=== PATIENT | female | born 1945 | race Two or more races ===

== ENCOUNTER → 2016-03-26 | Outpatient (CLI) | payer OTHER ==
[~2016-03-26] MED LIST: BACL10TA PO; CETITAB PO; DILT180C68 PO; FLUT0.0535 NAS; FURO20TA3 PO; GABA-494 PO; IPRASOL41 NEB; LEVO25TA6 PO; LIDO5DIS21 TOP; LOSA25TA9 PO; METF-312 PO; MONT10TA34 PO; PANT1INJ3 PO; PRAV20TA3 PO; SUCR1TAB36 PO
[2016-03-26 12:25] LABS: Basophils # (auto) 0.1 uL; Basophils % (auto) 1.1 % (0.0-2.0); Eosinophils # (auto) 0.3 uL; Eosinophils % (auto) 4.6 % (0.0-7.0); Hematocrit 41.7 % (36.0-46.0); Hemoglobin 12.9 g/dL (12.2-16.2); Lymphocytes # (auto) 3.4 uL; Lymphocytes % (auto) 47.1 % (10.0-50.0); Mean Corpuscular Hemoglobin 29.1 pg (28.0-32.0); Mean Corpuscular Volume 93.8 fL (80.0-100.0); Mean Platelet Volume 10.5 fL (7.4-10.4); Monocytes # (auto) 0.4 uL; Monocytes % (auto) 5.6 % (0.0-12.0); Neutrophils % (auto) 41.6 % (37.0-80.0); Platelet Count (auto) 249 10^3/uL (140-450); Red Cell Distribution Width 13.4 % (11.6-16.0); White Blood Cell 7.2 10^3/uL (4.4-10.8)
[2016-03-26 12:29] LABS: Urine Bilirubin Negative (Negative); Urine Blood Negative /uL (Negative); Urine Color Yellow (Yellow); Urine Glucose Normal (Normal); Urine Hyaline Cast MOD /lpf (0 - 2); Urine Ketone Negative (Negative); Urine Mucus FEW (None Seen); Urine Nitrite Negative (Negative); Urine RBC 5 /hpf (0 - 4); Urine Squamous Epithelial Cell MOD /hpf (<5); Urine Urobilinogen Normal (Negative); Urine pH 5.5 (5.0-8.0)
[2016-03-26 12:58] LABS: Albumin 3.9 g/dL (3.4-5.0); BUN/Creatinine Ratio 18.3; Bilirubin, Total 0.4 mg/dL (0.2-1.0); Potassium 3.9 mmol/L (3.5-5.1); Total Protein 7.9 g/dL (6.4-8.2)
== END | disposition home or self-care (01) ==
LOC: LAB 11:39
PROVIDERS: ATTEND Family Medicine
DX: E78.5 Hyperlipidemia, unspecified (principal)
CPT/HCPCS: 36415; 80053; 80061; 81001; 82043; 82306; 83036; 84443; 85025

== ENCOUNTER → 2016-06-01 | Outpatient (CLI) | payer OTHER ==
[2016-06-01 12:31] LABS: Albumin 3.7 g/dL (3.4-5.0); BUN/Creatinine Ratio 12.4; Bilirubin, Total 0.4 mg/dL (0.2-1.0); Potassium 3.9 mmol/L (3.5-5.1); Total Protein 7.8 g/dL (6.4-8.2)
== END | disposition home or self-care (01) ==
LOC: LAB 11:50
PROVIDERS: ATTEND Internal Medicine
DX: E78.5 Hyperlipidemia, unspecified (principal); I10 Essential (primary) hypertension; E11.9 Type 2 diabetes mellitus without complications
CPT/HCPCS: 36415; 80053; 80061; 82043; 82306; 83036; 84443

== ENCOUNTER → 2016-07-17 | Outpatient (CLI) | payer OTHER | END | disposition home or self-care (01) | LOC: LAB 16:09 | PROVIDERS: ATTEND Internal Medicine | DX: R68.81 Early satiety (principal) | CPT/HCPCS: 86677 ==

== ENCOUNTER 2016-09-20 23:09 | Emergency (ER) | payer OTHER ==
[~2016-09-20] VITALS: Ht 167.6 cm; Wt 108.9 kg
[~2016-09-20 23:09] MED LIST changes: -METF-312 PO; +METF-370 PO
[2016-09-20 23:30] VITALS: BP 153/65
[2016-09-20 23:49] LABS: Basophils # (auto) 0.1 uL; Basophils % (auto) 0.9 % (0.0-2.0); Eosinophils # (auto) 0.3 uL; Eosinophils % (auto) 4.4 % (0.0-7.0); Hematocrit 37.9 % (36.0-46.0); Hemoglobin 12.6 g/dL (12.2-16.2); Lymphocytes # (auto) 3.4 uL; Lymphocytes % (auto) 46.3 % (10.0-50.0); Mean Corpuscular Hemoglobin 30.1 pg (28.0-32.0); Mean Corpuscular Hgb Conc. 33.2 g/dL (32.0-36.0); Mean Corpuscular Volume 90.9 fL (80.0-100.0); Mean Platelet Volume 9.4 fL (7.4-10.4); Monocytes # (auto) 0.6 uL; Monocytes % (auto) 7.6 % (0.0-12.0); Neutrophils # (auto) 3.1 uL; Neutrophils % (auto) 40.8 % (37.0-80.0); Platelet Count (auto) 210 10^3/uL (140-450); Red Cell Distribution Width 12.8 % (11.6-16.0); SUSPECT SEE PRINTOUT; White Blood Cell 7.5 10^3/uL (4.4-10.8)
[2016-09-21 00:05] LABS: INR 0.92 (0.9-1.15); Partial Thromboplastin Time 23.6 sec (22.64-33.71)
[2016-09-21 00:06] LABS: Urine Bilirubin Negative (Negative); Urine Blood Negative /uL (Negative); Urine Color Yellow (Yellow); Urine Glucose Normal (Normal); Urine Ketone Negative (Negative); Urine Nitrite Negative (Negative); Urine RBC 1 /hpf (0 - 4); Urine Squamous Epithelial Cell FEW /hpf (<5); Urine Urobilinogen Normal (Negative); Urine pH 5.5 (5.0-8.0)
[2016-09-21 00:16] LABS: Albumin 3.6 g/dL (3.4-5.0); BUN/Creatinine Ratio 12.8; Calcium 8.7 mg/dL (8.5-10.1)
[2016-09-21 00:19] LABS: Bilirubin, Total 0.3 mg/dL (0.2-1.0); Total Protein 7.3 g/dL (6.4-8.2)
== END 2016-09-21 01:45 | disposition left against medical advice (07) ==
LOC: ER 23:09
DX: M79.605 Pain in left leg (principal); M79.604 Pain in right leg; Z53.21 Procedure and treatment not carried out due to patient leaving prior to being seen by health care provider
CPT/HCPCS: 36415; 80053; 81001; 85025; 85610; 85730

== ENCOUNTER 2016-09-21 12:38 | Emergency (ER) | payer OTHER ==
[~2016-09-21] VITALS: Ht 167.6 cm; Wt 108.9 kg
[2016-09-21 14:53] VITALS: BP 141/99
== END 2016-09-21 15:00 | disposition home or self-care (01) ==
LOC: ER 12:40
DX: S80.10XA Contusion of unspecified lower leg, initial encounter (principal); N39.0 Urinary tract infection, site not specified; J45.909 Unspecified asthma, uncomplicated; E11.9 Type 2 diabetes mellitus without complications; I10 Essential (primary) hypertension; E07.89 Other specified disorders of thyroid; Z90.710 Acquired absence of both cervix and uterus; Z90.49 Acquired absence of other specified parts of digestive tract; Z90.89 Acquired absence of other organs; Z79.899 Other long term (current) drug therapy; Z88.6 Allergy status to analgesic agent; Z88.5 Allergy status to narcotic agent; Z88.8 Allergy status to other drugs, medicaments and biological substances; Z87.891 Personal history of nicotine dependence; X58.XXXA Exposure to other specified factors, initial encounter; Y93.89 Activity, other specified; Y99.8 Other external cause status; Y92.89 Other specified places as the place of occurrence of the external cause
CPT/HCPCS: 93970

== ENCOUNTER → 2016-10-25 | Outpatient (CLI) | payer OTHER ==
[~2016-10-25] VITALS: Ht 167.6 cm; Wt 105.7 kg
[~2016-10-25] MED LIST changes: +ATOR40TA52 PO; +CETI1TAB36 PO; +ENA10T PO; +ESCI20TA51 PO; +FLUT100I IN; +FURO40TA4 PO; +POTA20TA53 PO
[2016-10-25 11:43] LABS: Basophils # (auto) 0 uL; Basophils % (auto) 0.7 % (0.0-2.0); CONDITION Y; Eosinophils # (auto) 0.2 uL; Eosinophils % (auto) 3.6 % (0.0-7.0); Hematocrit 39.8 % (36.0-46.0); Hemoglobin 13.1 g/dL (12.2-16.2); Lymphocytes % (auto) 37.4 % (10.0-50.0); Mean Corpuscular Hemoglobin 30.4 pg (28.0-32.0); Mean Corpuscular Volume 91.9 fL (80.0-100.0); Mean Platelet Volume 9.7 fL (7.4-10.4); Monocytes # (auto) 0.3 uL; Monocytes % (auto) 5.6 % (0.0-12.0); Neutrophils # (auto) 2.8 uL; Neutrophils % (auto) 52.7 % (37.0-80.0); Platelet Count (auto) 251 10^3/uL (140-450); Red Cell Distribution Width 14.9 % (11.6-16.0); White Blood Cell 5.4 10^3/uL (4.4-10.8)
[2016-10-25 11:57] LABS: INR 1.02 (0.9-1.15); Partial Thromboplastin Time 24.7 sec (22.64-33.71); Prothrombin Time 11.1 sec (9.37-12.3)
== END | disposition home or self-care (01) ==
LOC: LAB 08:00 → EDSTATUS 10-26 09:00
PROVIDERS: ATTEND Internal Medicine Gastroenterology
DX: R63.0 Anorexia (principal); I10 Essential (primary) hypertension; E11.9 Type 2 diabetes mellitus without complications; Z79.01 Long term (current) use of anticoagulants
CPT/HCPCS: 36415; 85025; 85610; 85730

== ENCOUNTER 2017-05-25 17:11 | Emergency (ER) | payer SELFPAY ==
[~2017-05-25] VITALS: Ht 167.6 cm; Wt 109.8 kg
[~2017-05-25 17:11] MED LIST changes: -CETITAB PO; -FLUT0.0535 NAS; -FURO20TA3 PO; -GABA-494 PO; -IPRASOL41 NEB; -LIDO5DIS21 TOP; -LOSA25TA9 PO; -METF-370 PO; -MONT10TA34 PO; -PANT1INJ3 PO; -PRAV20TA3 PO; -SUCR1TAB36 PO
[2017-05-25 20:28] LABS: Albumin 3.8 g/dL (3.4-5.0); Bilirubin, Total 0.4 mg/dL (0.2-1.0); Calcium 8.7 mg/dL (8.5-10.1); Potassium 4.1 mmol/L (3.5-5.1); Total Protein 7.7 g/dL (6.4-8.2)
[2017-05-25 21:00] LABS: Basophils # (auto) 0.1 uL; Basophils % (auto) 1.2 % (0.0-2.0); Eosinophils # (auto) 0.2 uL; Eosinophils % (auto) 2.4 % (0.0-7.0); Hematocrit 40.3 % (36.0-46.0); Hemoglobin 13.3 g/dL (12.2-16.2); Lymphocytes # (auto) 2.8 uL; Lymphocytes % (auto) 30.6 % (10.0-50.0); Mean Corpuscular Hemoglobin 30.9 pg (28.0-32.0); Mean Corpuscular Volume 93.7 fL (80.0-100.0); Monocytes # (auto) 0.6 uL; Monocytes % (auto) 6.1 % (0.0-12.0); Neutrophils # (auto) 5.5 uL; Neutrophils % (auto) 59.7 % (37.0-80.0); Nucleated Red Blood Cells % 0.1 %; Platelet Count (auto) 214 10^3/uL (140-450); Red Cell Distribution Width 13.7 % (11.8-14.3); White Blood Cell 9.3 10^3/uL (4.4-10.8)
[2017-05-25 23:10] VITALS: BP 123/54
== END 2017-05-26 00:25 | disposition left against medical advice (07) ==
LOC: EDUNIT# 17:11 → EDBD 17:11 → ER 17:11
DX: S70.02XA Contusion of left hip, initial encounter (principal); S30.1XXA Contusion of abdominal wall, initial encounter; T88.8XXA Other specified complications of surgical and medical care, not elsewhere classified, initial encounter; M19.90 Unspecified osteoarthritis, unspecified site; J45.909 Unspecified asthma, uncomplicated; E11.9 Type 2 diabetes mellitus without complications; I10 Essential (primary) hypertension; E07.9 Disorder of thyroid, unspecified; Z90.49 Acquired absence of other specified parts of digestive tract; Z90.710 Acquired absence of both cervix and uterus; Z91.040 Latex allergy status; Z88.8 Allergy status to other drugs, medicaments and biological substances; Z79.899 Other long term (current) drug therapy; E66.01 Morbid (severe) obesity due to excess calories; Z68.39 Body mass index [BMI] 39.0-39.9, adult; X58.XXXA Exposure to other specified factors, initial encounter; Y93.89 Activity, other specified; Y92.89 Other specified places as the place of occurrence of the external cause; Y99.8 Other external cause status
CPT/HCPCS: 36415; 73502; 74176; 80053; 85025

== ENCOUNTER 2017-08-21 06:36 | Inpatient (IN) | payer OTHER ==
[~2017-08-21] VITALS: Ht 167.6 cm; Wt 112.4 kg
[2017-08-21] MEDS ORDERED: SODIUM CHLORIDE 0.9% 1,000 ML IV ONE (06:58)
[2017-08-21 07:23] LABS: Basophils # (auto) 0.1 uL; Basophils % (auto) 0.5 % (0.0-2.0); Eosinophils # (auto) 0 uL; Eosinophils % (auto) 0.1 % (0.0-7.0); Hematocrit 40.3 % (36.0-46.0); Hemoglobin 13.4 g/dL (12.2-16.2); Lymphocytes # (auto) 1.2 uL; Lymphocytes % (auto) 9.5 % (10.0-50.0); Mean Corpuscular Hemoglobin 30.6 pg (28.0-32.0); Mean Corpuscular Hgb Conc. 33.4 g/dL (32.0-36.0); Mean Corpuscular Volume 91.7 fL (80.0-100.0); Monocytes # (auto) 0.6 uL; Monocytes % (auto) 4.8 % (0.0-12.0); Neutrophils # (auto) 10.6 uL; Neutrophils % (auto) 85.1 % (37.0-80.0); Platelet Count (auto) 192 10^3/uL (140-450); Red Cell Distribution Width 13.9 % (11.8-14.3); White Blood Cell 12.4 10^3/uL (4.4-10.8)
[2017-08-21] MEDS ORDERED: PROMETHAZINE HCL 25 MG/ML 1ML IV PRN ×2 (07:30→12:30)
[2017-08-21] MEDS ORDERED: KETOROLAC TROMETH 30 MG/ML 1ML VIAL IV ONE (07:30)
[2017-08-21 07:43] LABS: Albumin 3.3 g/dL (3.4-5.0); Amylase 27 U/L (25-115); Anion Gap 13 (5-15); BUN/Creatinine Ratio 13.8; Blood Urea Nitrogen 15 mg/dL (7-18); Calcium 8.8 mg/dL (8.5-10.1); Carbon Dioxide 26 mmol/L (21-32); Chloride 101 mmol/L (98-107); GFR African American 64 mL/min; GFR Non-African American 53 mL/min; Glucose 163 mg/dL (74-106); Lipase 116 U/L (73-393); Sodium 140 mmol/L (136-145)
[2017-08-21 07:45] LABS: Lactic Acid w/Reflex 2.1 mmol/L (0.4-2.0)
[2017-08-21 07:48] LABS: Alanine Aminotransferase 19 U/L (13-56); Alkaline Phosphatase 71 U/L (45-117); Aspartate Aminotransferase 11 U/L (15-37); Bilirubin, Total 0.6 mg/dL (0.2-1.0); Total Protein 7.8 g/dL (6.4-8.2)
[2017-08-21] MEDS ORDERED: VANCOMYCIN 1GM/250ML 250 ML IV ONE (09:00)
[2017-08-21 09:36] LABS: Urine Bacteria FEW /hpf (None Seen); Urine Blood Negative /uL (Negative); Urine Mucus FEW (None Seen); Urine Specific Gravity 1.021 (1.001-1.035); Urine WBC 3 /hpf (0 - 5)
[2017-08-21] MEDS ORDERED: ACETAMINOPHEN 325 MG TAB PO ONE (10:15)
[2017-08-21] MEDS ORDERED: SODIUM CHLORIDE 0.9% 1,000 ML IV SCH (12:19)
[2017-08-21] MEDS ORDERED: BACLOFEN 10 MG TAB PO PRN (12:30)
[2017-08-21] MEDS ORDERED: NITROGLYCERIN 0.4 MG SL TAB SL PRN (12:30)
[2017-08-21] MEDS ORDERED: PIPERACILLIN-TAZOB 3.375GM 100 ML IV ONE (12:30)
[2017-08-21] MEDS ORDERED: traMADol HCL 50 MG TAB PO PRN (12:30)
[2017-08-21] MEDS ORDERED: DEXTROSE (50%) 50ML SYRG IV PRN (12:30)
[2017-08-21] MEDS ORDERED: MORPHINE SULF INJ 2 MG/ML SYRINGE 1ML IV PRN ×2 (12:30)
[2017-08-21] MEDS ORDERED: LORazepam 0.5 MG TAB PO PRN (12:30)
[2017-08-21] MEDS ORDERED: TEMAZEPAM 15 MG CAP PO PRN (12:30)
[2017-08-21] MEDS ORDERED: VANCOMYCIN PER PHARMACY 0 MG IV SCH (12:30)
[2017-08-21] MEDS: DILTIAZEM HCL 180MG ER CAP PO SCH (13:21)
[2017-08-21] MEDS: FAMOTIDINE (10MG/ML) 2ML VL IV SCH ×2 (13:34→23:58)
[2017-08-21] MEDS: SODIUM CHLORIDE 0.9% 1,000 ML IV SCH (13:51)
[2017-08-21] MEDS ORDERED: MIDAZOLAM HCL 1MG/1ML-2 ML VIAL ONE (13:55)
[2017-08-21] MEDS ORDERED: fentaNYL CITRATE 100 MCG/2 ML VL ONE (13:55)
[2017-08-21] MEDS ORDERED: VANCOMYCIN 1GM/250ML 250 ML IV SCH ×2 (14:00→16:00)
[2017-08-21] MEDS ORDERED: LIDOCAINE 2% (LOCAL ANESTH.) PF 5ml SDV ONE (14:07)
[2017-08-21] MEDS ORDERED: FLUMAZENIL 0.1 MG/ML INJ 10ML MDV IV ONE (14:14)
[2017-08-21 15:20] VITALS: BP 114/65
[2017-08-21] MEDS ORDERED: ESCI20TA PO (15:50)
[2017-08-21] MEDS ORDERED: NAPR375T27 PO (15:50)
[2017-08-21] MEDS ORDERED: ATO40T PO (15:50)
[2017-08-21] MEDS ORDERED: POM INH (15:50)
[2017-08-21] MEDS: VANCOMYCIN 1,250 MG in D5W 5% 250 ML IV SCH (16:23)
[2017-08-21 16:29] LABS: Amylase 29 U/L (25-115); Lipase 117 U/L (73-393)
[2017-08-21 17:32] VITALS: BP 140/76
[2017-08-21] MEDS: PIPERACILLIN-TAZOB 3.375GM 100 ML IV SCH ×2 (18:28→23:44)
[2017-08-21] MEDS: ACCU-CHEK COMFORT CURVE STRIP VI SCH ×2 (18:28→23:58)
[2017-08-21] MEDS: ACETAMINOPHEN 500 MG TAB PO PRN (18:39)
[2017-08-21] MEDS: InsuLIN REG 1unit/0.01ml Soln (100units/ml) SC SCH ×2 (18:40→23:58)
[2017-08-21 20:00] VITALS: BP 112/50
[2017-08-21] MEDS: ATORVASTATIN 20 MG TAB PO SCH (21:55)
[2017-08-21 22:00] VITALS: BP 112/50
[2017-08-21] MEDS ORDERED: LORATADINE 10 MG TAB PO ONE (22:15)
[2017-08-22] VITALS (7 sets, daily range): BP systolic 111–162; BP diastolic 39–81
[2017-08-22] MEDS: ACETAMINOPHEN 500 MG TAB PO PRN ×3 (03:06→17:51)
[2017-08-22] MEDS: PIPERACILLIN-TAZOB 3.375GM 100 ML IV SCH ×3 (05:54→17:50)
[2017-08-22 05:59] LABS: Basophils # (auto) 0.1 uL; Basophils % (auto) 0.7 % (0.0-2.0); Eosinophils # (auto) 0 uL; Hematocrit 34.7 % (36.0-46.0); Hemoglobin 11.6 g/dL (12.2-16.2); Lymphocytes # (auto) 1.7 uL; Lymphocytes % (auto) 11.4 % (10.0-50.0); Mean Corpuscular Hemoglobin 30.8 pg (28.0-32.0); Mean Corpuscular Hgb Conc. 33.5 g/dL (32.0-36.0); Monocytes # (auto) 0.9 uL; Neutrophils % (auto) 81.9 % (37.0-80.0); Platelet Count (auto) 159 10^3/uL (140-450); Red Blood Cells 3.76 10^6/uL (4.0-5.20); White Blood Cell 14.6 10^3/uL (4.4-10.8)
[2017-08-22] MEDS: ACCU-CHEK COMFORT CURVE STRIP VI SCH ×3 (06:00→17:50)
[2017-08-22 06:12] LABS: Albumin 2.7 g/dL (3.4-5.0); BUN/Creatinine Ratio 13.3; Calcium 7.5 mg/dL (8.5-10.1); Potassium 3.5 mmol/L (3.5-5.1)
[2017-08-22 06:14] LABS: Bilirubin, Total 1.2 mg/dL (0.2-1.0); Total Protein 6.4 g/dL (6.4-8.2)
[2017-08-22] MEDS: InsuLIN REG 1unit/0.01ml Soln (100units/ml) SC SCH ×3 (06:58→18:00)
[2017-08-22] MEDS: LEVOTHYROXINE SODIUM 25 MCG TAB PO SCH (09:52)
[2017-08-22] MEDS: LORATADINE 10 MG TAB PO SCH (09:52)
[2017-08-22] MEDS: SODIUM CHLORIDE 0.9% 1,000 ML IV SCH ×2 (09:53)
[2017-08-22] MEDS: DILTIAZEM HCL 180MG ER CAP PO SCH ×3 (09:57→17:54)
[2017-08-22] MEDS: LEXAPRO PO SCH (09:57)
[2017-08-22] MEDS ORDERED: ENALAPRIL MALEATE 10 MG TAB PO SCH (10:00)
[2017-08-22] MEDS: FAMOTIDINE (10MG/ML) 2ML VL IV SCH (12:20)
[2017-08-22] MEDS: CYANOCOBALAMIN 500 MCG TAB PO SCH (12:27)
[2017-08-22] MEDS ORDERED: VANCOMYCIN 1,250 MG in D5W 5% 250 ML IV ONE (14:30)
[2017-08-22] MEDS: VANCOMYCIN 1,250 MG in D5W 5% 250 ML IV SCH (16:57)
[2017-08-22] MEDS: ATORVASTATIN 20 MG TAB PO SCH (22:04)
[2017-08-23] MEDS: PIPERACILLIN-TAZOB 3.375GM 100 ML IV SCH ×4 (00:51→17:25)
[2017-08-23] MEDS: InsuLIN REG 1unit/0.01ml Soln (100units/ml) SC SCH ×4 (00:52→17:30)
[2017-08-23] MEDS: ACETAMINOPHEN 500 MG TAB PO PRN ×4 (00:58→21:52)
[2017-08-23] MEDS: FAMOTIDINE (10MG/ML) 2ML VL IV SCH ×2 (00:58→12:54)
[2017-08-23 05:00] VITALS: BP 120/59
[2017-08-23 06:00] LABS: Basophils # (auto) 0.2 uL; Basophils % (auto) 1.3 % (0.0-2.0); Eosinophils # (auto) 0 uL; Eosinophils % (auto) 0.1 % (0.0-7.0); Hematocrit 34.3 % (36.0-46.0); Hemoglobin 11.5 g/dL (12.2-16.2); Lymphocytes # (auto) 1.2 uL; Lymphocytes % (auto) 8.7 % (10.0-50.0); Mean Corpuscular Hgb Conc. 33.5 g/dL (32.0-36.0); Mean Corpuscular Volume 92.4 fL (80.0-100.0); Monocytes # (auto) 0.9 uL; Monocytes % (auto) 6.9 % (0.0-12.0); Neutrophils # (auto) 11.1 uL; Platelet Count (auto) 152 10^3/uL (140-450); Red Blood Cells 3.71 10^6/uL (4.0-5.20); Red Cell Distribution Width 13.6 % (11.8-14.3); White Blood Cell 13.3 10^3/uL (4.4-10.8)
[2017-08-23 06:07] LABS: INR 1.05 (0.9-1.15); Partial Thromboplastin Time 27.3 sec (23.78-33.04); Prothrombin Time 11.2 sec (9.27-12.13)
[2017-08-23] MEDS: ACCU-CHEK COMFORT CURVE STRIP VI SCH ×4 (06:22→17:30)
[2017-08-23 06:25] LABS: Calcium 8.1 mg/dL (8.5-10.1); Magnesium 2.4 mg/dL (1.6-2.6); Potassium 3.5 mmol/L (3.5-5.1)
[2017-08-23 08:00] VITALS: BP 134/97
[2017-08-23 09:00] VITALS: BP 134/97
[2017-08-23] MEDS: LEXAPRO PO SCH (10:00)
[2017-08-23] MEDS: DILTIAZEM HCL 180MG ER CAP PO SCH (10:00)
[2017-08-23] MEDS: CYANOCOBALAMIN 500 MCG TAB PO SCH (10:00)
[2017-08-23] MEDS: LORATADINE 10 MG TAB PO SCH (10:14)
[2017-08-23] MEDS: LEVOTHYROXINE SODIUM 25 MCG TAB PO SCH (10:15)
[2017-08-23 13:00] VITALS: BP 143/66
[2017-08-23] MEDS: VANCOMYCIN 1,250 MG in D5W 5% 250 ML IV SCH (16:12)
[2017-08-23 17:00] VITALS: BP 117/78
[2017-08-23] MEDS ORDERED: CIPROFLOXACIN HCL 500 MG TAB PO ONE (17:00)
[2017-08-23] MEDS ORDERED: ACE500T PO (17:02)
[2017-08-23] MEDS ORDERED: CIPR-217 PO (17:02)
[2017-08-23] MEDS: ATORVASTATIN 20 MG TAB PO SCH (21:49)
[2017-08-23 22:00] VITALS: BP 155/76
[2017-08-24] MEDS: PIPERACILLIN-TAZOB 3.375GM 100 ML IV SCH ×3 (00:14→11:45)
[2017-08-24] MEDS: ACCU-CHEK COMFORT CURVE STRIP VI SCH ×3 (00:14→11:45)
[2017-08-24] MEDS: FAMOTIDINE (10MG/ML) 2ML VL IV SCH ×2 (00:18→11:44)
[2017-08-24 05:42] LABS: Basophils # (auto) 0.1 uL; Basophils % (auto) 0.8 % (0.0-2.0); Eosinophils # (auto) 0.1 uL; Eosinophils % (auto) 0.6 % (0.0-7.0); Hematocrit 33.9 % (36.0-46.0); Hemoglobin 11.4 g/dL (12.2-16.2); Lymphocytes # (auto) 1.3 uL; Lymphocytes % (auto) 11.6 % (10.0-50.0); Mean Corpuscular Hgb Conc. 33.7 g/dL (32.0-36.0); Mean Corpuscular Volume 92.1 fL (80.0-100.0); Monocytes # (auto) 0.9 uL; Monocytes % (auto) 8.4 % (0.0-12.0); Neutrophils # (auto) 8.6 uL; Neutrophils % (auto) 78.6 % (37.0-80.0); Platelet Count (auto) 188 10^3/uL (140-450); Red Blood Cells 3.69 10^6/uL (4.0-5.20); Red Cell Distribution Width 13.7 % (11.8-14.3)
[2017-08-24 05:56] VITALS: BP 163/76
[2017-08-24] MEDS: ACETAMINOPHEN 500 MG TAB PO PRN (05:56)
[2017-08-24] MEDS: InsuLIN REG 1unit/0.01ml Soln (100units/ml) SC SCH ×3 (05:56→12:00)
[2017-08-24 05:57] LABS: Calcium 7.7 mg/dL (8.5-10.1); Potassium 3.2 mmol/L (3.5-5.1)
[2017-08-24 09:00] VITALS: BP 141/69
[2017-08-24] MEDS: DILTIAZEM HCL 180MG ER CAP PO SCH (09:55)
[2017-08-24] MEDS: LEVOTHYROXINE SODIUM 25 MCG TAB PO SCH (09:56)
[2017-08-24] MEDS: LORATADINE 10 MG TAB PO SCH (09:56)
[2017-08-24] MEDS: LEXAPRO PO SCH (10:00)
[2017-08-24] MEDS: CYANOCOBALAMIN 500 MCG TAB PO SCH (10:00)
[2017-08-24 13:00] VITALS: BP 166/69
[2017-08-24 14:48] VITALS: BP 166/69
== END 2017-08-24 16:30 | disposition home health service (06) | DRG 919 ==
LOC: EDBD 06:36 → ER 06:36 → TELE 06:37 → TELE-WESTW 15:58
PROVIDERS: ADMIT Internal Medicine; ATTEND Internal Medicine
PROC: 0W9F30Z Drainage of Abdominal Wall with Drainage Device, Percutaneous Approach (ICD-10-PCS; principal; 2017-08-21)
DX: L76.34 Postprocedural seroma of skin and subcutaneous tissue following other procedure (principal); A41.9 Sepsis, unspecified organism; N39.0 Urinary tract infection, site not specified; I13.0 Hypertensive heart and chronic kidney disease with heart failure and stage 1 through stage 4 chronic kidney disease, or unspecified chronic kidney disease; R18.8 Other ascites; E44.0 Moderate protein-calorie malnutrition; Z68.41 Body mass index [BMI] 40.0-44.9, adult; E03.9 Hypothyroidism, unspecified; E11.22 Type 2 diabetes mellitus with diabetic chronic kidney disease; E11.65 Type 2 diabetes mellitus with hyperglycemia; E66.01 Morbid (severe) obesity due to excess calories; E78.5 Hyperlipidemia, unspecified; F32.9 Major depressive disorder, single episode, unspecified; F41.9 Anxiety disorder, unspecified; G47.30 Sleep apnea, unspecified; I50.9 Heart failure, unspecified; J44.9 Chronic obstructive pulmonary disease, unspecified; M19.90 Unspecified osteoarthritis, unspecified site; R91.1 Solitary pulmonary nodule; R01.1 Cardiac murmur, unspecified; I08.0 Rheumatic disorders of both mitral and aortic valves; Y83.9 Surgical procedure, unspecified as the cause of abnormal reaction of the patient, or of later complication, without mention of misadventure at the time of the procedure; Y82.8 Other medical devices associated with adverse incidents; B95.2 Enterococcus as the cause of diseases classified elsewhere; N18.3 Chronic kidney disease, stage 3 (moderate); Z82.49 Family history of ischemic heart disease and other diseases of the circulatory system; Z87.891 Personal history of nicotine dependence; Z90.710 Acquired absence of both cervix and uterus; Z90.49 Acquired absence of other specified parts of digestive tract; Z86.718 Personal history of other venous thrombosis and embolism; Z88.8 Allergy status to other drugs, medicaments and biological substances; Z91.040 Latex allergy status; Y92.89 Other specified places as the place of occurrence of the external cause
CPT/HCPCS: 10022; 36415; 71046; 74176; 76700; 77012; 80048; 80053; 81001; 82150; 82962; 83036; 83605; 83690; 83735; 84443; 84484; 85025; 85610; 85652; 85730; 87040; 87077; 87086; 87186; 87205; 93005; 93306; 96365; 96375; C1729; J1815; J1885; J2250; J2543; J3490; J7060

== ENCOUNTER 2021-05-05 12:53 | Emergency (ER) | payer OTHER ==
[~2021-05-05] VITALS: Ht 167.6 cm; Wt 108.9 kg
[~2021-05-05 12:53] MED LIST changes: +ACET500T43 PO; +ATO40T PO; -ATOR40TA52 PO; -BACL10TA PO; +CLIN300C8 PO; +DIPH25CA66 PO; -ENA10T PO; +ESCI20TA PO; -ESCI20TA51 PO; +LEVO500T31 PO; +NAPR375T27 PO; +POM INH; +POTA-220 PO; -POTA20TA53 PO
[2021-05-05] MEDS ORDERED: traMADol HCL 50 MG TAB PO ONE ×2 (13:30→16:15)
[2021-05-05] MEDS ORDERED: ONDANSETRON ODT 4 MG TAB PO ONE (14:30)
[2021-05-05] MEDS ORDERED: IOHEXOL 350 MG/ML 100ML IJ ONE (16:21)
[2021-05-05] MEDS ORDERED: KETOROLAC TROMETH 30 MG/ML 1ML VIAL IV ONE (16:45)
[2021-05-05 17:06] LABS: Basophils # (auto) 0.1 10 ^3/uL (0-0.2); Basophils % (auto) 0.5 % (0.0-2.0); Eosinophils # (auto) 0 10 ^3/uL (0-0.8); Eosinophils % (auto) 0.2 % (0.0-7.0); Hematocrit 41.5 % (36.0-46.0); Hemoglobin 13.7 g/dL (12.2-16.2); Lymphocytes # (auto) 1.5 10 ^3/uL (0.4-5.4); Lymphocytes % (auto) 12.6 % (10.0-50.0); Mean Corpuscular Hemoglobin 30.7 pg (28.0-32.0); Monocytes # (auto) 0.6 10 ^3/uL (0-1.3); Monocytes % (auto) 4.7 % (0.0-12.0); Neutrophils # (auto) 9.9 10 ^3/uL (1.6-8.6); Nucleated Red Blood Cells % 0.1 %; Red Blood Cells 4.46 10^6/uL (4.0-5.20); Red Cell Distribution Width 13.9 % (11.8-14.3); White Blood Cell 12.1 10^3/uL (4.4-10.8)
[2021-05-05 17:12] LABS: INR 1.03 (0.9-1.15); Partial Thromboplastin Time 24.8 sec (23.6-33.0)
[2021-05-05 17:22] LABS: Albumin 3.6 g/dL (3.4-5.0); Calcium 8.7 mg/dL (8.5-10.1); Potassium 4.2 mmol/L (3.5-5.1)
[2021-05-05 17:26] LABS: BUN/Creatinine Ratio 19.6; Bilirubin, Total 0.2 mg/dL (0.2-1.0); Total Protein 7.9 g/dL (6.4-8.2)
[2021-05-05 17:31] VITALS: BP 117/93
== END 2021-05-05 17:49 | disposition short-term general hospital (02) ==
LOC: EDBD 12:53 → ER 12:53
DX: S82.832A Other fracture of upper and lower end of left fibula, initial encounter for closed fracture (principal); S22.41XA Multiple fractures of ribs, right side, initial encounter for closed fracture; J93.9 Pneumothorax, unspecified; I10 Essential (primary) hypertension; E11.9 Type 2 diabetes mellitus without complications; J44.9 Chronic obstructive pulmonary disease, unspecified; I48.91 Unspecified atrial fibrillation; E03.9 Hypothyroidism, unspecified; Z87.891 Personal history of nicotine dependence; Z90.49 Acquired absence of other specified parts of digestive tract; Z90.710 Acquired absence of both cervix and uterus; Z79.899 Other long term (current) drug therapy; Z79.2 Long term (current) use of antibiotics; Z91.040 Latex allergy status; Z88.8 Allergy status to other drugs, medicaments and biological substances; Z20.822 Contact with and (suspected) exposure to COVID-19; V43.62XA Car passenger injured in collision with other type car in traffic accident, initial encounter; Y93.89 Activity, other specified; Y92.410 Unspecified street and highway as the place of occurrence of the external cause; Y99.8 Other external cause status
CPT/HCPCS: 36415; 71101; 73070; 73610; 80053; 85025; 85610; 85730; 87426; 93005; 96374; 99285; J1885; Q0162

== ENCOUNTER 2023-03-04 17:53 | Inpatient (IN) | payer OTHER, MEDICAID ==
[~2023-03-04] VITALS: Ht 167.6 cm; Wt 108.1 kg
[~2023-03-04 17:53] MED LIST changes: -ACET500T43 PO; +AMIO200T33 PO; +APIX5TAB PO; -CLIN300C8 PO; -FURO40TA4 PO; -LEVO500T31 PO; -NAPR375T27 PO; -POM INH
[2023-03-04] MEDS ORDERED: LABETALOL HCL 5 MG/ML 4ML SYRINGE IV ONE (18:15)
[2023-03-04] MEDS ORDERED: ASPirin 81 mg TAB PO ONE (18:15)
[2023-03-04 18:21] VITALS: PULSE 126; RESP 16; O2SAT 97
[2023-03-04 18:26] LABS: Basophils # (auto) 0 10 ^3/uL (0-0.2); Basophils % (auto) 0.1 % (0.0-2.0); Eosinophils # (auto) 0.3 10 ^3/uL (0-0.8); Eosinophils % (auto) 3.8 % (0.0-7.0); Hematocrit 41.2 % (36.0-46.0); Hemoglobin 13.6 g/dL (12.2-16.2); Lymphocytes # (auto) 2.6 10 ^3/uL (0.4-5.4); Lymphocytes % (auto) 35.2 % (10.0-50.0); Mean Corpuscular Hemoglobin 30.9 pg (28.0-32.0); Mean Corpuscular Hgb Conc. 32.9 g/dL (32.0-36.0); Mean Corpuscular Volume 93.9 fL (80.0-100.0); Monocytes # (auto) 0.4 10 ^3/uL (0-1.3); Monocytes % (auto) 5.8 % (0.0-12.0); Neutrophils % (auto) 55.1 % (37.0-80.0); Nucleated Red Blood Cells % 0.1 %; Red Blood Cells 4.39 10^6/uL (4.0-5.20); Red Cell Distribution Width 13.5 % (11.8-14.3); White Blood Cell 7.3 10^3/uL (4.4-10.8)
[2023-03-04 18:42] LABS: Alanine Aminotransferase 13 U/L (7-40); Albumin 4.7 g/dL (3.2-4.8); Alkaline Phosphatase 75 U/L (46-116); Anion Gap 8 (5-15); Aspartate Aminotransferase 12 U/L (13-40); BUN/Creatinine Ratio 14.7 (10.0-20.0); Blood Urea Nitrogen 17 mg/dL (9-23); Calcium 9.6 mg/dL (8.7-10.4); Carbon Dioxide 30 mmol/L (20-30); Chloride 100 mmol/L (98-107); Glucose 111 mg/dL (74-106); Potassium 3.6 mmol/L (3.5-5.1); Sodium 138 mmol/L (136-145)
[2023-03-04 18:43] LABS: Bilirubin, Total 0.5 mg/dL (0.2-1.0); Total Protein 7.7 g/dL (5.7-8.2)
[2023-03-04] MEDS ORDERED: MORPHINE SULFATE INJ 2 MG/ml SYRG IV PRN (19:15)
[2023-03-04] MEDS ORDERED: HYDROcodone-ACET 5/325MG TAB PO PRN (19:15)
[2023-03-04] MEDS ORDERED: ONDANSETRON HCL 4 MG/2 ML VIAL IV PRN (19:15)
[2023-03-04] MEDS ORDERED: NITROGLYCERIN 0.4 MG SL TAB SL PRN (19:15)
[2023-03-04] MEDS ORDERED: DEXTROSE (50%) 50ML SYRG IV PRN (19:15)
[2023-03-04 20:00] VITALS: PULSE 65; RESP 17; O2SAT 94
[2023-03-04] MEDS ORDERED: IPRATROPIUM BROM 0.5 MG/2.5ML INH SOL NEB PRN (20:15)
[2023-03-04 22:00] VITALS: PULSE 69; RESP 19; O2SAT 96
[2023-03-04] MEDS: InsuLIN REG 1unit/0.01ml Soln (100units/ml) SC SCH (22:00)
[2023-03-04] MEDS: ACCU-CHEK COMFORT CURVE STRIP VI SCH (22:10)
[2023-03-04] MEDS: APIXABAN 5 MG TAB PO SCH (22:13)
[2023-03-04] MEDS: ATORVASTATIN 20 MG TAB PO SCH (22:13)
[2023-03-04] MEDS: GABAPENTIN 300 MG CAP PO SCH (22:14)
[2023-03-05] VITALS (10 sets, daily range): BP systolic 111–135; BP diastolic 46–55; PULSE 55–72; RESP 16–18; TEMP 97.9–98.9; O2SAT 90–97
[2023-03-05 05:59] LABS: Anion Gap 8 (5-15); Calcium 9.4 mg/dL (8.7-10.4); Carbon Dioxide 31 mmol/L (20-30); Chloride 100 mmol/L (98-107); Potassium 3.7 mmol/L (3.5-5.1); Sodium 139 mmol/L (136-145)
[2023-03-05 06:04] LABS: Glucose 105 mg/dL (74-106)
[2023-03-05 06:05] LABS: BUN/Creatinine Ratio 16.8 (10.0-20.0); Blood Urea Nitrogen 17 mg/dL (9-23); Magnesium 2.2 mg/dL (1.6-2.6)
[2023-03-05] MEDS: InsuLIN REG 1unit/0.01ml Soln (100units/ml) SC SCH ×4 (07:00→22:00)
[2023-03-05] MEDS: ACCU-CHEK COMFORT CURVE STRIP VI SCH ×4 (07:17→22:00)
[2023-03-05] MEDS: LEVOTHYROXINE SODIUM 50 MCG TAB PO SCH (07:18)
[2023-03-05] MEDS ORDERED: PNEUMOCOCCAL VACC POLYS 25 MCG/0.5 ML VIAL IM ONE (10:45)
[2023-03-05] MEDS: GABAPENTIN 300 MG CAP PO SCH ×2 (11:08→21:02)
[2023-03-05] MEDS: APIXABAN 5 MG TAB PO SCH ×2 (11:08→21:02)
[2023-03-05] MEDS: AMIODARONE HCL 200 MG TAB PO SCH (21:01)
[2023-03-05] MEDS: ACETAMINOPHEN 325 MG TAB PO PRN (21:02)
[2023-03-05] MEDS: ATORVASTATIN 20 MG TAB PO SCH (21:02)
[2023-03-06] VITALS (9 sets, daily range): BP systolic 110–148; BP diastolic 39–68; PULSE 51–73; RESP 14–20; TEMP 97.6–98.3; O2SAT 90–97
[2023-03-06] MEDS: LEVOTHYROXINE SODIUM 50 MCG TAB PO SCH (06:40)
[2023-03-06] MEDS: ACCU-CHEK COMFORT CURVE STRIP VI SCH ×4 (06:40→21:52)
[2023-03-06] MEDS: InsuLIN REG 1unit/0.01ml Soln (100units/ml) SC SCH ×4 (06:43→21:51)
[2023-03-06] MEDS: ACETAMINOPHEN 325 MG TAB PO PRN ×2 (06:43→21:45)
[2023-03-06] MEDS: AMIODARONE HCL 200 MG TAB PO SCH (09:59)
[2023-03-06] MEDS: APIXABAN 5 MG TAB PO SCH (09:59)
[2023-03-06] MEDS: dilTIAZem HCL 180MG ER CAP PO SCH (10:00)
[2023-03-06] MEDS: GABAPENTIN 300 MG CAP PO SCH ×2 (10:01→21:46)
[2023-03-06] MEDS ORDERED: GABA-1250 PO (17:24)
[2023-03-06] MEDS ORDERED: CHLO25TA2 PO (17:24)
[2023-03-06] MEDS: ATORVASTATIN 20 MG TAB PO SCH (21:46)
[2023-03-06] MEDS: ALPRAZolam 0.25 MG TAB PO PRN (21:48)
[2023-03-07] VITALS (9 sets, daily range): BP systolic 117–146; BP diastolic 46–90; PULSE 52–80; RESP 12–20; TEMP 97.7–98.3; O2SAT 91–97
[2023-03-07] MEDS: ACCU-CHEK COMFORT CURVE STRIP VI SCH ×4 (06:31→22:00)
[2023-03-07] MEDS: LEVOTHYROXINE SODIUM 50 MCG TAB PO SCH (06:31)
[2023-03-07] MEDS: InsuLIN REG 1unit/0.01ml Soln (100units/ml) SC SCH ×4 (06:31→22:00)
[2023-03-07] MEDS: dilTIAZem HCL 180MG ER CAP PO SCH (10:00)
[2023-03-07] MEDS: ACETAMINOPHEN 325 MG TAB PO PRN ×2 (10:21→21:20)
[2023-03-07] MEDS: GABAPENTIN 300 MG CAP PO SCH ×2 (10:21→23:49)
[2023-03-07] MEDS: ALPRAZolam 0.25 MG TAB PO PRN (21:18)
[2023-03-07] MEDS: ENOXAPARIN SOD 80 MG/0.8ML SYRINGE SC SCH (22:00)
[2023-03-07] MEDS: ATORVASTATIN 20 MG TAB PO SCH (23:49)
[2023-03-08] VITALS (14 sets, daily range): BP systolic 88–125; BP diastolic 40–84; PULSE 60–75; RESP 13–20; TEMP 97.5–98.2; O2SAT 91–97
[2023-03-08] MEDS: LEVOTHYROXINE SODIUM 50 MCG TAB PO SCH (06:33)
[2023-03-08 07:04] LABS: Basophils # (auto) 0.1 10 ^3/uL (0-0.2); Basophils % (auto) 1.1 % (0.0-2.0); Eosinophils # (auto) 0.3 10 ^3/uL (0-0.8); Eosinophils % (auto) 5.8 % (0.0-7.0); Hematocrit 38.4 % (36.0-46.0); Hemoglobin 12.6 g/dL (12.2-16.2); Lymphocytes # (auto) 1.8 10 ^3/uL (0.4-5.4); Lymphocytes % (auto) 36.8 % (10.0-50.0); Mean Corpuscular Hemoglobin 30.9 pg (28.0-32.0); Mean Corpuscular Hgb Conc. 32.9 g/dL (32.0-36.0); Mean Corpuscular Volume 93.9 fL (80.0-100.0); Monocytes # (auto) 0.4 10 ^3/uL (0-1.3); Monocytes % (auto) 7.6 % (0.0-12.0); Neutrophils # (auto) 2.4 10 ^3/uL (1.6-8.6); Neutrophils % (auto) 48.7 % (37.0-80.0); Nucleated Red Blood Cells % 0.1 %; Red Blood Cells 4.09 10^6/uL (4.0-5.20); Red Cell Distribution Width 13.7 % (11.8-14.3); White Blood Cell 4.9 10^3/uL (4.4-10.8)
[2023-03-08 07:18] LABS: INR 0.98 (0.9-1.15); Partial Thromboplastin Time 25.4 SEC (24.5-34.5); Prothrombin Time 10.3 sec (9.3-11.8)
[2023-03-08 07:38] LABS: Alanine Aminotransferase 13 U/L (7-40); Albumin 4.2 g/dL (3.2-4.8); Alkaline Phosphatase 66 U/L (46-116); Anion Gap 7 (5-15); Aspartate Aminotransferase 12 U/L (13-40); BUN/Creatinine Ratio 18.3 (10.0-20.0); Blood Urea Nitrogen 21 mg/dL (9-23); Calcium 9.2 mg/dL (8.7-10.4); Carbon Dioxide 31 mmol/L (20-30); Chloride 101 mmol/L (98-107); Glucose 111 mg/dL (74-106); Sodium 139 mmol/L (136-145)
[2023-03-08 07:39] LABS: Bilirubin, Total 0.5 mg/dL (0.2-1.0); Total Protein 6.9 g/dL (5.7-8.2)
[2023-03-08 07:45] LABS: Urine Epithelial Cast None Seen /hpf (<5)
[2023-03-08 08:23] LABS: Urine Bacteria MOD /hpf (None Seen); Urine Blood Negative /uL (Negative); Urine Clarity Clear (Clear); Urine Color Colorless (Yellow); Urine Protein, UAD Negative (Negative); Urine Urobilinogen Normal (Negative); Urine WBC 7 /hpf (0 - 5)
[2023-03-08] MEDS: ENOXAPARIN SOD 80 MG/0.8ML SYRINGE SC SCH (10:00)
[2023-03-08] MEDS: dilTIAZem HCL 180MG ER CAP PO SCH (10:00)
[2023-03-08] MEDS: GABAPENTIN 300 MG CAP PO SCH ×2 (10:34→23:13)
[2023-03-08] MEDS: ALPRAZolam 0.25 MG TAB PO PRN (10:53)
[2023-03-08] MEDS: ACCU-CHEK COMFORT CURVE STRIP VI SCH (11:30)
[2023-03-08] MEDS: InsuLIN REG 1unit/0.01ml Soln (100units/ml) SC SCH (11:30)
[2023-03-08] MEDS ORDERED: ALPRAZolam 0.5 MG TAB PO ONE (12:00)
[2023-03-08] MEDS ORDERED: VANCOMYCIN 1GM/200ML 200 ML IV ONE ×2 (12:55→13:00)
[2023-03-08] MEDS ORDERED: LIDOCAINE 2%HCL (LOCAL ANESTH.) INJ 20ML MDV ONE (13:11)
[2023-03-08] MEDS ORDERED: MIDAZOLAM HCL 2MG/2ML 2ml VIAL (1mg/ml) ONE (13:15)
[2023-03-08] MEDS ORDERED: fentaNYL CITRATE 100 MCG/2 ML VL ONE (13:15)
[2023-03-08] MEDS ORDERED: VANCOMYCIN HCL 1000 MG VL ONE (13:16)
[2023-03-08] MEDS: IBUPROFEN 600 MG TAB PO PRN (17:08)
[2023-03-08] MEDS: diphenhdrAMINE HCL 25 MG CAP PO PRN (18:08)
[2023-03-08] MEDS: DOXYCYCLINE 100 MG TAB/CAP PO SCH (23:12)
[2023-03-08] MEDS: ATORVASTATIN 20 MG TAB PO SCH (23:13)
[2023-03-09 05:00] VITALS: BP 110/49; PULSE 69; RESP 18; TEMP 98.6; O2SAT 96
[2023-03-09] MEDS: IBUPROFEN 600 MG TAB PO PRN ×2 (06:28→12:52)
[2023-03-09] MEDS: LEVOTHYROXINE SODIUM 50 MCG TAB PO SCH (06:28)
[2023-03-09] MEDS: diphenhdrAMINE HCL 25 MG CAP PO PRN ×2 (06:28→12:53)
[2023-03-09 06:40] LABS: Hematocrit 40.8 % (36.0-46.0); Hemoglobin 13.2 g/dL (12.2-16.2)
[2023-03-09 08:00] VITALS: PULSE 67; PULSE 68; RESP 19; O2SAT 91
[2023-03-09 09:00] VITALS: BP 123/47; PULSE 68; RESP 19; TEMP 97.9; O2SAT 91
[2023-03-09] MEDS: GABAPENTIN 300 MG CAP PO SCH (09:49)
[2023-03-09] MEDS: dilTIAZem HCL 180MG ER CAP PO SCH (09:49)
[2023-03-09] MEDS: DOXYCYCLINE 100 MG TAB/CAP PO SCH (09:50)
[2023-03-09] MEDS ORDERED: IBU600T PO (11:45)
[2023-03-09] MEDS ORDERED: DOX100T PO (11:45)
[2023-03-09 13:00] VITALS: BP 130/63; PULSE 60; RESP 16; TEMP 98.6; O2SAT 90
[2023-03-09 13:33] VITALS: O2SAT 97
[2023-03-09 15:31] VITALS: BP 130/62; PULSE 63; RESP 19; TEMP 37; O2SAT 91
== END 2023-03-09 17:00 | disposition home or self-care (01) | DRG 243 ==
LOC: EDBD 17:53 → ER 17:53 → TELE 19:32 → TELE-CENTR 03-05 09:23
PROVIDERS: ADMIT Nurse Practitioner Family; ATTEND Nurse Practitioner Family
PROC: 0JH606Z Insertion of Pacemaker, Dual Chamber into Chest Subcutaneous Tissue and Fascia, Open Approach (ICD-10-PCS; principal; 2023-03-08)
PROC: 02H63JZ Insertion of Pacemaker Lead into Right Atrium, Percutaneous Approach (ICD-10-PCS; 2023-03-08)
PROC: 02HK3JZ Insertion of Pacemaker Lead into Right Ventricle, Percutaneous Approach (ICD-10-PCS; 2023-03-08)
DX: I44.30 Unspecified atrioventricular block (principal); D68.69 Other thrombophilia; I48.20 Chronic atrial fibrillation, unspecified; I10 Essential (primary) hypertension; J44.89 Other specified chronic obstructive pulmonary disease; E03.9 Hypothyroidism, unspecified; E11.9 Type 2 diabetes mellitus without complications; E66.01 Morbid (severe) obesity due to excess calories; E78.5 Hyperlipidemia, unspecified; Z86.718 Personal history of other venous thrombosis and embolism; Z82.49 Family history of ischemic heart disease and other diseases of the circulatory system; Z86.711 Personal history of pulmonary embolism; Z87.891 Personal history of nicotine dependence; Z88.5 Allergy status to narcotic agent; Z90.49 Acquired absence of other specified parts of digestive tract; Z90.710 Acquired absence of both cervix and uterus; Z91.040 Latex allergy status; Z68.38 Body mass index [BMI] 38.0-38.9, adult
CPT/HCPCS: 33208; 36415; 71045; 80048; 80053; 81001; 82962; 83735; 83880; 84484; 85014; 85018; 85025; 85610; 85730; 86850; 86900; 86901; 93005; 93306; 93886; 96374; 99152; 99291; G0378; J2250; J3490

== ENCOUNTER 2023-03-24 02:05 | Observation (INO) | payer OTHER, MEDICAID ==
[~2023-03-24] VITALS: Ht 167.6 cm; Wt 108.8 kg
[2023-03-24] VITALS (11 sets, daily range): BP systolic 122–157; BP diastolic 62–82; PULSE 10–125; RESP 14–20; TEMP 97.9–99.5; O2SAT 91–100
[~2023-03-24 02:05] MED LIST changes: -AMIO200T33 PO; +DOX100T PO; +GABA-1250 PO; +IBU600T PO; -POTA-220 PO
[2023-03-24 02:40] LABS: Basophils # (auto) 0.1 10 ^3/uL (0-0.2); Basophils % (auto) 1.3 % (0.0-2.0); Eosinophils # (auto) 0.3 10 ^3/uL (0-0.8); Eosinophils % (auto) 4.7 % (0.0-7.0); Hemoglobin 12.7 g/dL (12.2-16.2); Lymphocytes # (auto) 2.3 10 ^3/uL (0.4-5.4); Lymphocytes % (auto) 32.7 % (10.0-50.0); Mean Corpuscular Hemoglobin 31.1 pg (28.0-32.0); Mean Corpuscular Hgb Conc. 32.5 g/dL (32.0-36.0); Mean Corpuscular Volume 95.6 fL (80.0-100.0); Monocytes # (auto) 0.4 10 ^3/uL (0-1.3); Monocytes % (auto) 5.2 % (0.0-12.0); Neutrophils % (auto) 56.1 % (37.0-80.0); Red Blood Cells 4.08 10^6/uL (4.0-5.20); Red Cell Distribution Width 13.9 % (11.8-14.3); White Blood Cell 7.1 10^3/uL (4.4-10.8)
[2023-03-24 02:49] LABS: Alanine Aminotransferase 12 U/L (7-40); Albumin 4.2 g/dL (3.2-4.8); Alkaline Phosphatase 65 U/L (46-116); Anion Gap 3 (5-15); Aspartate Aminotransferase 12 U/L (13-40); BUN/Creatinine Ratio 16.5 (10.0-20.0); Blood Urea Nitrogen 16 mg/dL (9-23); Calcium 9.2 mg/dL (8.7-10.4); Carbon Dioxide 31 mmol/L (20-30); Chloride 106 mmol/L (98-107); Glucose 123 mg/dL (74-106); Sodium 140 mmol/L (136-145)
[2023-03-24 02:50] LABS: Bilirubin, Total 0.3 mg/dL (0.2-1.0); Total Protein 7.1 g/dL (5.7-8.2)
[2023-03-24] MEDS ORDERED: ONDANSETRON HCL 4 MG/2 ML VIAL IV PRN (04:45)
[2023-03-24] MEDS ORDERED: ACETAMINOPHEN 325 MG TAB PO PRN (04:45)
[2023-03-24] MEDS ORDERED: HYDROcodone-ACET 5/325MG TAB PO PRN ×2 (04:45→05:00)
[2023-03-24] MEDS ORDERED: MORPHINE SULFATE INJ 2 MG/ml SYRG IV PRN ×2 (04:45→05:00)
[2023-03-24] MEDS ORDERED: hydrALAZINE HCL 10 MG TAB PO PRN (04:45)
[2023-03-24] MEDS ORDERED: DEXTROSE (50%) 50ML SYRG IV PRN (04:45)
[2023-03-24] MEDS ORDERED: NITROGLYCERIN 0.4 MG SL TAB SL PRN (04:45)
[2023-03-24] MEDS ORDERED: IPRATROPIUM BROM 0.5 MG/2.5ML INH SOL NEB PRN (05:00)
[2023-03-24 05:02] LABS: Alanine Aminotransferase 12 U/L (7-40); Alkaline Phosphatase 61 U/L (46-116); Anion Gap 7 (5-15); Aspartate Aminotransferase 12 U/L (13-40); BUN/Creatinine Ratio 17.4 (10.0-20.0); Bilirubin, Total 0.3 mg/dL (0.2-1.0); Blood Urea Nitrogen 16 mg/dL (9-23); Carbon Dioxide 27 mmol/L (20-30); Chloride 106 mmol/L (98-107); Glucose 109 mg/dL (74-106); Magnesium 1.9 mg/dL (1.6-2.6); Potassium 3.8 mmol/L (3.5-5.1); Sodium 140 mmol/L (136-145); Total Protein 6.8 g/dL (5.7-8.2)
[2023-03-24] MEDS: ACCU-CHEK COMFORT CURVE STRIP VI SCH ×4 (06:37→23:02)
[2023-03-24] MEDS: InsuLIN REG 1unit/0.01ml Soln (100units/ml) SC SCH ×4 (06:37→22:00)
[2023-03-24 08:11] LABS: Triglycerides 227 mg/dL (< 150)
[2023-03-24 08:12] LABS: LDL Cholesterol 65 mg/dL (< 100)
[2023-03-24 08:13] LABS: Cholesterol 167 mg/dL (< 200); HDL Cholesterol 69 mg/dL (40-59)
[2023-03-24] MEDS ORDERED: ENOXAPARIN SOD 40 MG/0.4 ML SYRINGE SC SCH (10:00)
[2023-03-24] MEDS ORDERED: IOHEXOL 350 MG/ML 100ML IJ ONE (10:50)
[2023-03-24] MEDS ORDERED: LEVO50TA7 PO (13:43)
[2023-03-24] MEDS ORDERED: MET25T PO (13:43)
[2023-03-24] MEDS: LEVOTHYROXINE SODIUM 25 MCG TAB PO SCH (14:43)
[2023-03-24] MEDS: dilTIAZem 120MG ER CAP PO SCH (14:43)
[2023-03-24] MEDS: PANTOPRAZOLE 40 MG/10 ML VIAL INJ IV SCH (14:43)
[2023-03-24] MEDS: MAGNESIUM SULFATE 1GM/100ML 100 ML IV SCH ×2 (15:33→18:14)
[2023-03-24] MEDS ORDERED: MAGNESIUM SULFATE 1GM/100ML 100 ML IV ONE (18:13)
[2023-03-24] MEDS: BUDESONIDE (INHALATION) 0.5 MG/2 ML NEB NEB SCH (19:09)
[2023-03-24] MEDS: ALBUTEROL MEDNEB 2.5 mg/3ml NEB NEB SCH (19:10)
[2023-03-24] MEDS ORDERED: dilTIAZem 120MG ER CAP PO ONE (20:30)
[2023-03-24] MEDS ORDERED: METOPROLOL TARTRATE 25 MG TAB PO SCH (22:00)
[2023-03-24] MEDS ORDERED: ATORVASTATIN 20 MG TAB PO SCH (22:00)
[2023-03-24] MEDS: GABAPENTIN 300 MG CAP PO SCH (23:01)
[2023-03-24] MEDS: APIXABAN 5 MG TAB PO SCH (23:01)
[2023-03-25] VITALS (9 sets, daily range): BP systolic 128–153; BP diastolic 62–74; PULSE 62–66; RESP 14–20; TEMP 36.8; O2SAT 92–99
[2023-03-25] MEDS ORDERED: ALBUTEROL SULF 2.5 MG/0.5ML(0.5%) NEB SOLN ONE ×2 (00:29→06:03)
[2023-03-25] MEDS: ALBUTEROL MEDNEB 2.5 mg/3ml NEB NEB SCH ×3 (00:41→12:00)
[2023-03-25 06:11] LABS: Anion Gap 4 (5-15); Carbon Dioxide 31 mmol/L (20-30); Chloride 105 mmol/L (98-107); Potassium 4.2 mmol/L (3.5-5.1); Sodium 140 mmol/L (136-145)
[2023-03-25 06:12] LABS: Calcium 8.8 mg/dL (8.7-10.4)
[2023-03-25 06:17] LABS: BUN/Creatinine Ratio 15.2 (10.0-20.0); Blood Urea Nitrogen 14 mg/dL (9-23); Glucose 94 mg/dL (74-106)
[2023-03-25] MEDS: BUDESONIDE (INHALATION) 0.5 MG/2 ML NEB NEB SCH (06:26)
[2023-03-25] MEDS: ACCU-CHEK COMFORT CURVE STRIP VI SCH ×3 (06:42→16:41)
[2023-03-25] MEDS: InsuLIN REG 1unit/0.01ml Soln (100units/ml) SC SCH ×3 (06:43→16:41)
[2023-03-25] MEDS: dilTIAZem 120MG ER CAP PO SCH (08:59)
[2023-03-25] MEDS: APIXABAN 5 MG TAB PO SCH (09:01)
[2023-03-25] MEDS: GABAPENTIN 300 MG CAP PO SCH (09:01)
[2023-03-25] MEDS: PANTOPRAZOLE 40 MG/10 ML VIAL INJ IV SCH (09:01)
[2023-03-25] MEDS ORDERED: Escitalopram Oxalate 20 MG Tablet PO SCH (10:00)
[2023-03-25] MEDS: LEVOTHYROXINE SODIUM 25 MCG TAB PO SCH (10:00)
[2023-03-25] MEDS ORDERED: IBUPROFEN 600 MG TAB PO PRN (13:00)
[2023-03-25] MEDS ORDERED: DILT-102 PO (17:31)
== END 2023-03-25 18:03 | disposition home or self-care (01) ==
LOC: EDBD 02:05 → ER 02:05 → EEVIPCON 04:36 → TELE 04:36 → TELE-WESTW 11:57
PROVIDERS: ADMIT Nurse Practitioner Family; ATTEND Hospitalist
DX: I47.10 Supraventricular tachycardia, unspecified (principal); I48.20 Chronic atrial fibrillation, unspecified; I49.9 Cardiac arrhythmia, unspecified; I10 Essential (primary) hypertension; E11.9 Type 2 diabetes mellitus without complications; E66.9 Obesity, unspecified; E78.5 Hyperlipidemia, unspecified; E03.9 Hypothyroidism, unspecified; Z79.84 Long term (current) use of oral hypoglycemic drugs; Z79.899 Other long term (current) drug therapy; Z86.711 Personal history of pulmonary embolism; Z86.718 Personal history of other venous thrombosis and embolism; Z87.891 Personal history of nicotine dependence; Z95.0 Presence of cardiac pacemaker; Z68.38 Body mass index [BMI] 38.0-38.9, adult; Z88.5 Allergy status to narcotic agent; Z91.040 Latex allergy status; Z88.8 Allergy status to other drugs, medicaments and biological substances
CPT/HCPCS: 36415; 71045; 71275; 80048; 80053; 80061; 82962; 83036; 83735; 83880; 84443; 84484; 85025; 85379; 93005; 94640; 96365; 96366; 96375; 97163; 99291; C9113; G0378; J3475; J7030; J7644; Q9967

== ENCOUNTER 2023-04-17 09:50 | Inpatient (IN) | payer OTHER, MEDICAID ==
[~2023-04-17] VITALS: Ht 167.6 cm; Wt 104.9 kg
[~2023-04-17 09:50] MED LIST changes: +DILT-102 PO; -DILT180C68 PO; -DOX100T PO; -LEVO25TA6 PO; +LEVO50TA7 PO; +MET25T PO
[2023-04-17 10:27] VITALS: PULSE 67; RESP 16; O2SAT 85
[2023-04-17] MEDS: SODIUM CHLORIDE 0.9% 1,000 ML IV ONE (11:45)
[2023-04-17 12:23] LABS: Basophils # (auto) 0.1 10 ^3/uL (0-0.2); Basophils % (auto) 0.8 % (0.0-2.0); Eosinophils # (auto) 0 10 ^3/uL (0-0.8); Eosinophils % (auto) 0.2 % (0.0-7.0); Hematocrit 38.6 % (36.0-46.0); Hemoglobin 12.7 g/dL (12.2-16.2); Lymphocytes # (auto) 1.1 10 ^3/uL (0.4-5.4); Lymphocytes % (auto) 15.4 % (10.0-50.0); Mean Corpuscular Hemoglobin 30.7 pg (28.0-32.0); Mean Corpuscular Hgb Conc. 32.7 g/dL (32.0-36.0); Mean Corpuscular Volume 93.8 fL (80.0-100.0); Monocytes # (auto) 0.5 10 ^3/uL (0-1.3); Monocytes % (auto) 7.1 % (0.0-12.0); Neutrophils # (auto) 5.3 10 ^3/uL (1.6-8.6); Neutrophils % (auto) 76.5 % (37.0-80.0); Nucleated Red Blood Cells % 0.1 %; Red Blood Cells 4.12 10^6/uL (4.0-5.20); Red Cell Distribution Width 13.7 % (11.8-14.3); White Blood Cell 6.9 10^3/uL (4.4-10.8)
[2023-04-17 12:34] LABS: Alanine Aminotransferase 14 U/L (7-40); Albumin 4.1 g/dL (3.2-4.8); Alkaline Phosphatase 60 U/L (46-116); Anion Gap 6 (5-15); Aspartate Aminotransferase 17 U/L (13-40); BUN/Creatinine Ratio 17.3 (10.0-20.0); Blood Urea Nitrogen 17 mg/dL (9-23); Calcium 8.6 mg/dL (8.7-10.4); Carbon Dioxide 32 mmol/L (20-30); Chloride 99 mmol/L (98-107); Glucose 101 mg/dL (74-106); Magnesium 1.8 mg/dL (1.6-2.6); Potassium 3.6 mmol/L (3.5-5.1); Sodium 137 mmol/L (136-145)
[2023-04-17 12:35] LABS: Bilirubin, Total 0.7 mg/dL (0.2-1.0); Total Protein 6.8 g/dL (5.7-8.2)
[2023-04-17 12:38] LABS: INR 1.09 (0.9-1.15); Partial Thromboplastin Time 30.5 SEC (24.5-34.5); Prothrombin Time 11.4 sec (9.3-11.8)
[2023-04-17 13:26] LABS: Urine Bacteria FEW /hpf (None Seen); Urine Blood Negative /uL (Negative); Urine Clarity HAZY (Clear); Urine Color Yellow (Yellow); Urine Protein, UAD Negative (Negative); Urine Specific Gravity 1.009 (1.001-1.035); Urine Urobilinogen Normal (Negative); Urine WBC 44 /hpf (0 - 5)
[2023-04-17] MEDS ORDERED: MORPHINE SULFATE INJ 2 MG/ml SYRG IV PRN (18:00)
[2023-04-17] MEDS ORDERED: NITROGLYCERIN 0.4 MG SL TAB SL PRN (18:00)
[2023-04-17] MEDS: IOHEXOL 350 MG/ML 100ML IJ ONE ×2 (18:45→22:23)
[2023-04-17 20:00] VITALS: PULSE 64; RESP 23; O2SAT 90
[2023-04-17] MEDS: PIPERACILLIN-TAZOB 3.375GM 100 ML IV ONE (20:35)
[2023-04-17] MEDS: SOD CHL 0.45% 1,000 ML IV ONE (20:38)
[2023-04-17] MEDS: GABAPENTIN 300 MG CAP PO SCH (22:23)
[2023-04-17] MEDS: ATORVASTATIN 20 MG TAB PO SCH (22:23)
[2023-04-17] MEDS: METHOCARBAMOL 500 MG TAB PO SCH (22:23)
[2023-04-17 23:29] VITALS: PULSE 65
[2023-04-17] MEDS ORDERED: DIP005TP TOP (23:58)
[2023-04-18] VITALS (7 sets, daily range): BP systolic 124–139; BP diastolic 40–63; PULSE 62–71; RESP 16–20; TEMP 97.8–100.5; O2SAT 90–95
[2023-04-18] MEDS: IBUPROFEN 800 MG TAB PO ONE (00:48)
[2023-04-18] MEDS ORDERED: IOHEXOL 350 MG/ML 100ML IJ ONE (09:19)
[2023-04-18] MEDS: FLUTICASONE FUROATE VILANTEROL IN SCH (10:00)
[2023-04-18] MEDS: METOPROLOL TARTRATE 25 MG TAB PO SCH (10:00)
[2023-04-18] MEDS: CITALOPRAM HYDROBR 20 MG TAB PO SCH (10:00)
[2023-04-18] MEDS: LEVOTHYROXINE SODIUM 50 MCG TAB PO SCH (10:03)
[2023-04-18] MEDS: dilTIAZem HCL 180MG ER CAP PO SCH (10:03)
[2023-04-18] MEDS: cefTRIAXone 1GM/50ML D5W 50 ML IV SCH (10:04)
[2023-04-18] MEDS ORDERED: FLUT1SPR5 (16:07)
[2023-04-18] MEDS ORDERED: CIPR-173 PO (16:07)
== END 2023-04-18 17:25 | disposition home health service (06) | DRG 71 ==
LOC: ER 09:50 → TELE 17:56 → TELE-EAST 17:56
PROVIDERS: ADMIT Hospitalist; ATTEND Hospitalist
DX: G93.41 Metabolic encephalopathy (principal); J96.10 Chronic respiratory failure, unspecified whether with hypoxia or hypercapnia; N39.0 Urinary tract infection, site not specified; T14.90XA Injury, unspecified, initial encounter; R91.1 Solitary pulmonary nodule; R79.89 Other specified abnormal findings of blood chemistry; I10 Essential (primary) hypertension; W18.39XA Other fall on same level, initial encounter; Y92.009 Unspecified place in unspecified non-institutional (private) residence as the place of occurrence of the external cause; Z88.5 Allergy status to narcotic agent; Z88.8 Allergy status to other drugs, medicaments and biological substances; Z91.040 Latex allergy status; Z79.899 Other long term (current) drug therapy; Z87.891 Personal history of nicotine dependence; J44.9 Chronic obstructive pulmonary disease, unspecified; Z90.710 Acquired absence of both cervix and uterus; Z95.0 Presence of cardiac pacemaker; E11.9 Type 2 diabetes mellitus without complications; Z82.49 Family history of ischemic heart disease and other diseases of the circulatory system; Y93.89 Activity, other specified; Y99.8 Other external cause status
CPT/HCPCS: 36415; 70450; 71046; 72125; 72131; 73030; 73502; 78582; 80053; 81001; 82550; 83735; 84484; 85025; 85379; 85610; 85730; 87086; 93005; 97163; G0378; J2543

== ENCOUNTER 2023-08-04 01:41 | Emergency (ER) | payer OTHER, MEDICAID ==
[~2023-08-04] VITALS: Ht 162.6 cm; Wt 115.0 kg
[~2023-08-04 01:41] MED LIST changes: -ATO40T PO; +ATOR-507 PO; -CETI1TAB36 PO; +CIPR-173 PO; +DIP005TP TOP; -ESCI20TA PO; +FLUT1SPR5; -MET25T PO
[2023-08-04 03:58] LABS: Alanine Aminotransferase 16 U/L (7-40); Albumin 4.3 g/dL (3.2-4.8); Alkaline Phosphatase 77 U/L (46-116); Anion Gap 7 (5-15); Aspartate Aminotransferase 12 U/L (13-40); BUN/Creatinine Ratio 14.6 (10.0-20.0); Basophils # (auto) 0.1 10 ^3/uL (0-0.2); Bilirubin, Total 0.4 mg/dL (0.2-1.0); Blood Urea Nitrogen 12 mg/dL (9-23); Carbon Dioxide 31 mmol/L (20-30); Chloride 103 mmol/L (98-107); Eosinophils # (auto) 0.2 10 ^3/uL (0-0.8); Glucose 109 mg/dL (74-106); Hematocrit 39.9 % (36.0-46.0); Hemoglobin 13.3 g/dL (12.2-16.2); Lymphocytes # (auto) 1.7 10 ^3/uL (0.4-5.4); Lymphocytes % (auto) 28.4 % (10.0-50.0); Mean Corpuscular Hemoglobin 31.2 pg (28.0-32.0); Mean Corpuscular Hgb Conc. 33.3 g/dL (32.0-36.0); Mean Corpuscular Volume 93.6 fL (80.0-100.0); Monocytes # (auto) 0.4 10 ^3/uL (0-1.3); Monocytes % (auto) 6.7 % (0.0-12.0); Neutrophils # (auto) 3.7 10 ^3/uL (1.6-8.6); Neutrophils % (auto) 60.9 % (37.0-80.0); Nucleated Red Blood Cells % 0.1 %; Potassium 3.7 mmol/L (3.5-5.1); Red Blood Cells 4.26 10^6/uL (4.0-5.20); Red Cell Distribution Width 14.3 % (11.8-14.3); Sodium 141 mmol/L (136-145); Total Protein 7.5 g/dL (5.7-8.2); White Blood Cell 6.1 10^3/uL (4.4-10.8)
[2023-08-04] MEDS ORDERED: MECL12.586 PO (05:59)
[2023-08-04 06:11] VITALS: BP 143/87; PULSE 64; RESP 17; TEMP 98; O2SAT 92
== END 2023-08-04 06:13 | disposition home or self-care (01) ==
LOC: EDBD 01:41 → EDSEX 01:41 → ER 01:41
DX: R42 Dizziness and giddiness (principal); J44.9 Chronic obstructive pulmonary disease, unspecified; E11.9 Type 2 diabetes mellitus without complications; I10 Essential (primary) hypertension; Z90.49 Acquired absence of other specified parts of digestive tract; Z90.710 Acquired absence of both cervix and uterus; Z87.891 Personal history of nicotine dependence; Z88.6 Allergy status to analgesic agent; Z91.040 Latex allergy status
CPT/HCPCS: 36415; 70450; 71046; 80053; 85025; 93005

== ENCOUNTER 2023-08-28 13:05 | Emergency (ER) | payer OTHER, MEDICAID ==
[~2023-08-28] VITALS: Ht 167.6 cm; Wt 109.0 kg
[~2023-08-28 13:05] MED LIST changes: +MECL12.586 PO
[2023-08-28 13:53] LABS: Basophils # (auto) 0.1 10 ^3/uL (0-0.2); Basophils % (auto) 1.4 % (0.0-2.0); Eosinophils # (auto) 0.3 10 ^3/uL (0-0.8); Eosinophils % (auto) 4.1 % (0.0-7.0); Hematocrit 38.6 % (36.0-46.0); Hemoglobin 12.8 g/dL (12.2-16.2); Lymphocytes # (auto) 1.8 10 ^3/uL (0.4-5.4); Lymphocytes % (auto) 25.4 % (10.0-50.0); Mean Corpuscular Hemoglobin 30.7 pg (28.0-32.0); Mean Corpuscular Hgb Conc. 33.1 g/dL (32.0-36.0); Mean Corpuscular Volume 92.8 fL (80.0-100.0); Monocytes # (auto) 0.4 10 ^3/uL (0-1.3); Monocytes % (auto) 5.2 % (0.0-12.0); Neutrophils # (auto) 4.6 10 ^3/uL (1.6-8.6); Neutrophils % (auto) 63.9 % (37.0-80.0); Nucleated Red Blood Cells % 0.1 %; Red Blood Cells 4.16 10^6/uL (4.0-5.20); Red Cell Distribution Width 13.8 % (11.8-14.3); White Blood Cell 7.2 10^3/uL (4.4-10.8)
[2023-08-28 14:05] LABS: Alanine Aminotransferase 21 U/L (7-40); Albumin 4.1 g/dL (3.2-4.8); Alkaline Phosphatase 72 U/L (46-116); Anion Gap 3 (5-15); Aspartate Aminotransferase 15 U/L (13-40); BUN/Creatinine Ratio 15.1 (10.0-20.0); Bilirubin, Total 0.6 mg/dL (0.2-1.0); Blood Urea Nitrogen 14 mg/dL (9-23); Calcium 9.4 mg/dL (8.5-10.1); Carbon Dioxide 32 mmol/L (20-30); Chloride 106 mmol/L (98-107); Glucose 114 mg/dL (74-106); Potassium 4.3 mmol/L (3.5-5.1); Sodium 141 mmol/L (136-145); Total Protein 6.8 g/dL (5.7-8.2)
[2023-08-28] MEDS: FUROSEMIDE 100 MG/10ML VIAL IV ONE (17:33)
[2023-08-28] MEDS: methylPREDNISolone SOD SUCC 125 MG/2 ML VL IV ONE (18:35)
[2023-08-28] MEDS: IPRATROPIUM BROM 0.5 MG/2.5ML INH SOL NEB ONE (18:37)
[2023-08-28] MEDS: ALBUTEROL SULF 2.5 MG/0.5ML(0.5%) NEB SOLN NEB ONE (18:37)
[2023-08-28 18:38] VITALS: PULSE 84; RESP 18; O2SAT 93
[2023-08-28] MEDS ORDERED: PRED20TA2 PO (20:40)
[2023-08-28 21:00] VITALS: BP 147/60; PULSE 73; RESP 20; TEMP 98.1; O2SAT 94
== END 2023-08-28 21:10 | disposition home or self-care (01) ==
LOC: ER 13:05
DX: J44.9 Chronic obstructive pulmonary disease, unspecified (principal); R06.00 Dyspnea, unspecified; I10 Essential (primary) hypertension; E11.9 Type 2 diabetes mellitus without complications; M19.90 Unspecified osteoarthritis, unspecified site; I48.91 Unspecified atrial fibrillation; Z91.148 Patient's other noncompliance with medication regimen for other reason; Z98.890 Other specified postprocedural states; Z87.891 Personal history of nicotine dependence; Z88.8 Allergy status to other drugs, medicaments and biological substances
CPT/HCPCS: 36415; 71045; 80053; 83605; 83880; 84484; 85025; 85379; 93005; 94640; 96374; 96375; 99285; J1940; J2919; J7644

== ENCOUNTER 2024-04-26 04:42 | Inpatient (IN) | payer OTHER, MEDICAID ==
[~2024-04-26] VITALS: Ht 167.6 cm; Wt 100.0 kg
[~2024-04-26 04:42] MED LIST changes: +PRED20TA2 PO
--- NOTE | 2024-04-26 04:56 | ECG ---
[facility] Test Date: 2024-04-26 Test Time: 04:48:59 Pat Name: MARIAA GALVIN Department: ER Room: [address] [place] [address] Gender: F Mobile Phlebotomist: KLAUS : 1945 Requested By: JOSH BEEBE Order Number: [id number] Reading MD: Tank Bravo Measurements Intervals Brilliant Rate: 65 P: 81 [place]: 167 QRS: -41 QRSD: 120 T: 37 QT: 454 QTc: 473 Interpretive Statements Atrial-paced complexes Nonspecific IVCD with LAD Electronically Signed On 04-26-2024 18:49:17 PST by Tank Bravo Please click the below link to view image of tracing.
--- NOTE | 2024-04-26 04:58 | ED.PDOC ---
Kelsy. trauma (HPI) HPI Comments Pt CHAR from home. Pt reports she was reaching to put something away while holding onto her walker, the top of her walker moved and she slipped, and was able to catch herself from fully falling but landed with her chest against her walker. Pt has pacemaker in place, comes to ER to "check her pacemaker" D/T pt believes it may have moved. Pt denies chest pain, difficulty breathing, shortness of breath, dizziness, nausea or vomiting. Chief Complaint: Fall Injury Time Seen by MD: 04:52 Primary Care Provider: Herminio Reviewed notes: Nurses Notes, Shake Feeder Notes, Medications, Allergies Allergies: Coded Allergies: Morphine and Codeine (Verified Allergy, Severe, 12/14/21) Latex (Verified Allergy, Unknown, 09/08/17) Rocuronium (Verified Allergy, Unknown, 09/08/17) Meperidine (Verified Adverse Reaction, Severe, BREATHING PROBLEMS, 03/08/23) Opium (Verified Adverse Reaction, Severe, 03/08/23) ALL OPIOD DERIVED MEDICATIONS Home Meds Active Scripts Prednisone (Prednisone) 20 Mg Tab, 20 MG PO DAILY for 4 Days, #4 CAP Prov:GERARD BENNETT DO 08/28/23 Meclizine Hcl (Meclizine Hcl) 12.5 Mg Tab, 25 MG PO TID PRN for 7 Days, #21 TAB Prov:MILLIE CORONA MD 08/04/23 Fluticasone Propionate (Nasal) (Flonase Allergy Relief) 50 Mcg/Act Spr, 50 MCG NA BID, #1 SPRAY Prov:INDU OJEDA MD 04/18/23 Ciprofloxacin Hcl (Cipro) 500 Mg Tab, 1 TAB PO BID, #14 TAB Prov:INDU OJEDA MD 04/18/23 Diltiazem HCl (Diltiazem Hydrochloride E) 180 Mg Cap, 180 MG PO DAILY, #90 CAP Prov:INDU OJEDA MD 03/25/23 Ibuprofen Micronized (MOTRIN TABLET) 600 Mg Tb, 600 MG PO Q6HP PRN, #20 TAB Prov:INDU OJEDA MD 03/09/23 Apixaban Base (ELIQUIS) 5 Mg Tab, 5 MG PO Q12HR, #60 TAB Prov:JAYLEEN HARP MD 12/15/21 Reported Medications Betamethasone Dipropionate (Betamethasone Dipropionat) 0.05 % Cre, TOP BIDPRN 04/17/23 Levothyroxine Sodium (Levothyroxine Sodium) 50 Mcg Tab, 1 TAB PO DAILY 03/24/23 Gabapentin (Gabapentin) 300 Mg Cap, 1 CAP PO BID 03/06/23 Diphenhydramine Hcl (Benadryl Allergy) 25 Mg Cap, 25 MG PO DAILY PRN for SHORTNESS OF BREATH, CAP 09/11/17 Atorvastatin Calcium (Lipitor) 40 Mg Tab, 1 TAB PO QPM, #90 TAB 1 Refill 08/21/17 Fluticasone Furoate-Vilanterol (BREO ELLIPTA) 1 Inh Inh, 1 INH IN DAILY, INH 10/25/16 Mode of Arrival: EMS Past Medical History PAST MEDICAL HISTORY: AFIB, Arthritis, Asthma, COPD, DM, HTN, PE, Thyroid Surgical History: Appendectomy, Cholecystectomy, Hernia Repair, Hysterectomy, Pacemaker GATE PERSON History: No Pertinent GATE PERSON History Family History Family History: Family hx of Cancer Social History Smoker: Quit Greater Than 1 Year Alcohol: Denies ETOH Use Drugs: Denies Drug Use Lives In: Home Constitutional: denies: chills, diaphoresis, fatigue, fever, malaise, sweats, weakness, others EENTM: denies: blurred vision, double vision, ear bleeding, ear discharge, ear drainage, ear pain, ear ringing, eye pain, eye redness, hearing loss, mouth pain, mouth swelling, nasal discharge, nose bleeding, nose congestion, nose pain, photophobia, tearing, throat pain, throat swelling, voice changes, others Respiratory: denies: cough, hemoptysis, orthopnea, SOB at rest, shortness of breath, SOB with excertion, stridor, wheezing, others Cardiovascular: denies: chest pain, dizzy spells, diaphoresis, Dyspnea on exertion, edema, irregular heart beat, left arm pain, lightheadedness, palpitations, PND, syncope, others Gastrointestinal: denies: abdomen distended, abdominal pain, blood streaked bowels, constipated, diarrhea, dysphagia, difficulty swallowing, hematemesis, melena, nausea, poor appetite, poor fluid intake, rectal bleeding, rectal pain, vomiting, others Genitourinary: denies: abnormal vagina bleeding, burning, dyspareunia, dysuria, flank pain, frequency, hematuria, incontinence, pain, , vagina discharge, urgency, others Musculoskeletal: denies: back pain, gout, joint pain, joint swelling, muscle pain, muscle stiffness, neck pain, others Integumetry: denies: bruises, change in color, change in hair/nails, dryness, laceration, lesions, lumps, rash, wounds, others Allergic/Immunocompromised: denies: Difficulty Healing, Frequent Infections, Hives, Itching, others Hematologic/Lymphatic: denies: anemia, blood clots, easy bleeding, easy bruising, swollen glands, others Endocrine: denies: excessive hunger, excessive sweating, excessive thirst, excessive urination, flushing, intolerance to cold, intolerance to heat, une xplained weight gain, unexplained weight loss, others Physical Exam General Appearance: No Apparent Distress, Normal HEENT: Pharynx Normal Neck: Full Range of Motion, Non-Tender Respiratory: Chest Non-Tender (No noted External physical trauma left-sided chest over pacemaker, non movable under skin), Lungs Clear, No Respiratory Distress, Normal Breath Sounds Cardiovascular: No Edema, No JVD, No Murmur, No Gallop, Normal Peripheral Pulses, Regular Rate/Rhythm Breast Exam: Deferred Gastrointestinal: No Organomegaly, Non Tender, No Pulsatile Mass, Normal Bowel Sounds, Soft Genitalia: Deferred Pelvic: Deferred Rectal: Deferred Extremities: Normal capillary refill, Normal inspection, Normal range of motion, Non-tender, No pedal edema Musculoskeletal : Apperance: Normal Neurologic: Alert, hoop machine operator II-XII nml as Tested, No Motor Deficits, Normal Affect, Normal Mood, No Sensory Deficits Cerebellar Function: Normal Reflexes: Normal Skin: Dry, Normal Color, Warm Lymphatic: No Adenopathy Was a procedure done? Was a procedure done?: No Differential Diagnosis Multiple Trauma: Fractures, Contusion X-Ray, Labs, Meds, VS Vital Signs Date Time Temp Pulse Resp B/P (MAP) Pulse Ox O2 Delivery O2 Flow Rate FiO2 04/26/24 16:48 171/77 04/26/24 16:00 71 04/26/24 12:00 70 23 131/74 (93) 96 04/26/24 12:00 65 04/26/24 10:00 65 26 118/43 (68) 94 04/26/24 08:00 98.7 65 15 128/64 (85) 95 98.7 04/26/24 08:00 65 04/26/24 07:44 Nasal Cannula* 2 28 04/26/24 07:41 65 04/26/24 04:49 98.6 65 16 159/75 (103) 92 04/26/24 04:48 65 Lab Test 04/26/24 07:38 04/26/24 06:38 Range/Units Troponin I High Sensitivity < 3 L < 3 L </=34 ng/L White Blood Count 6.2 4.4-10.8 10^3/uL Red Blood Count 4.39 4.0-5.20 10^6/uL Hemoglobin 13.7 12.2-16.2 g/dL Hematocrit 42.0 36.0-46.0 % Mean Corpuscular Volume 95.7 80.0-100.0 fL Mean Corpuscular Hemoglobin 31.2 28.0-32.0 pg Mean Corpuscular Hemoglobin Concent 32.6 32.0-36.0 g/dL Red Cell Distribution Width 14.3 11.8-14.3 % Platelet Count 125 L 140-450 10^3/uL Mean Platelet Volume 10.3 6.9-10.8 fL Neutrophils (%) (Auto) 59.2 37.0-80.0 % Lymphocytes (%) (Auto) 30.7 10.0-50.0 % Monocytes (%) (Auto) 5.5 0.0-12.0 % Eosinophils (%) (Auto) 3.9 0.0-7.0 % Basophils (%) (Auto) 0.7 0.0-2.0 % Neutrophils # (Auto) 3.7 1.6-8.6 10 ^3/uL Lymphocytes # (Auto) 1.9 0.4-5.4 10 ^3/uL Monocytes # (Auto) 0.3 0-1.3 10 ^3/uL Eosinophils # (Auto) 0.2 0-0.8 10 ^3/uL Basophils # (Auto) 0 0-0.2 10 ^3/uL Nucleated Red Blood Cells 0.1 % Sodium Level 142 136-145 mmol/L Potassium Level 4.0 3.5-5.1 mmol/L Chloride Level 103 98-107 mmol/L Carbon Dioxide Level 31 20-31 mmol/L Anion Gap 8 5-15 Blood Urea Nitrogen 18 9-23 mg/dL Creatinine 1.02 0.550-1.02 mg/dL Glomerular Filtration Rate Calc 56 >90 mL/min BUN/Creatinine Ratio 17.6 10.0-20.0 Serum Glucose 112 H 74-106 mg/dL Calcium Level 9.8 8.7-10.4 mg/dL Total Bilirubin 0.5 0.2-1.0 mg/dL Aspartate Amino Transferase (AST) 13 13-40 U/L Alanine Aminotransferase (ALT) 18 7-40 U/L Alkaline Phosphatase 57 46-116 U/L B-Type Natriuretic Peptide 21.19 0-100 pg/mL Total Protein 7.7 5.7-8.2 g/dL Albumin 4.5 3.2-4.8 g/dL Current Medications Medications (Trade) Dose Ordered Sig/Amanda Route Start Time Stop Time Status Last Admin Hydralazine HCl (Apresoline Injection) 10 mg Q4HP PRN IV 04/26/24 16:00 04/26/24 16:48 X-Ray, Labs, Meds, VS Comment Chest x-ray ordered to confirm pacemaker placement Patient complained of dyspnea on exertion walking several feet for x-ray. EKG done shows no ectopy or acute findings. Baseline labs CBC CMP and troponin ordered. We will place patient for hospitalist for admission shortness of breath consultation with her corduroy brusher operator who placed the pacemaker doctor Lawrence. I Dr. Pastrana her took over patient's care from [facility] at 6:00 a.m.. At this time we are waiting labs return. CBC CMP and troponin have all returned which is largely within normal limits. At this time however she had significant shortness of breath with exertion upon walking just a few steps-chest x-ray and mother pulmonary congestion. Her corduroy brusher operator Dr. Bravo so he has been consulted. Hospitalist team was consulted for admission. I have personally evaluated the patient myself. Time of 1ST Reevaluation: 05:23 Reevaluation 1ST: Improved Patient Education/Counseling: Diagnosis, Treatment, Prognosis, Need For Follow Up Family Education/Counseling: No Family Present Departure 1 Departure Time of Disposition: 05:26 Impression: Primary Impression: Shortness of breath Additional Impressions: Accident due to mechanical fall without injury Qualified Codes: W19.XXXA - Unspecified fall, initial encounter Pacemaker displacement Qualified Codes: T82.128A - Displacement of other cardiac electronic device, initial encounter Pulmonary vascular congestion Disposition: ADMITTED INPATIENT Condition: Stable Discharged With: Spouse Critical Care Note Critical Care Time?: No Stability Stability form required: JOSH Traylor Apr 26, 2024 04:58 JOSE PASTRANA MD Apr 26, 2024 18:13
--- NOTE | 2024-04-26 05:34 | DVH ---
CHEST RADIOGRAPH Indication: pacer placement s/p fall on chest Technique: Single frontal view of the chest was obtained Comparison: XY CHEST TWO VIEWS ROUTINE on DOS: 08/04/23, XY CHEST TWO VIEWS ROUTINE on DOS: 04/17/23 IMPRESSION: Heart appears prominent size with a dual lead left cardiac device. There is moderate pulmonary vascu lar congestion and interstitial prominence. No focal airspace opacity, effusion, or pneumothorax. Fi ndings appear essentially unchanged.
[2024-04-26 07:20] LABS: Alanine Aminotransferase 18 U/L (7-40); Albumin 4.5 g/dL (3.2-4.8); Alkaline Phosphatase 57 U/L (46-116); Anion Gap 8 (5-15); Aspartate Aminotransferase 13 U/L (13-40); BUN/Creatinine Ratio 17.6 (10.0-20.0); Bilirubin, Total 0.5 mg/dL (0.2-1.0); Blood Urea Nitrogen 18 mg/dL (9-23); Calcium 9.8 mg/dL (8.7-10.4); Chloride 103 mmol/L (98-107); Sodium 142 mmol/L (136-145); Total Protein 7.7 g/dL (5.7-8.2)
[2024-04-26 07:29] LABS: Carbon Dioxide 31 mmol/L (20-31)
[2024-04-26 07:30] LABS: Glucose 112 mg/dL (74-106)
[2024-04-26 07:40] LABS: Basophils # (auto) 0 10 ^3/uL (0-0.2); Basophils % (auto) 0.7 % (0.0-2.0); Eosinophils # (auto) 0.2 10 ^3/uL (0-0.8); Eosinophils % (auto) 3.9 % (0.0-7.0); Hemoglobin 13.7 g/dL (12.2-16.2); Lymphocytes # (auto) 1.9 10 ^3/uL (0.4-5.4); Lymphocytes % (auto) 30.7 % (10.0-50.0); Mean Corpuscular Hemoglobin 31.2 pg (28.0-32.0); Mean Corpuscular Hgb Conc. 32.6 g/dL (32.0-36.0); Mean Corpuscular Volume 95.7 fL (80.0-100.0); Monocytes # (auto) 0.3 10 ^3/uL (0-1.3); Monocytes % (auto) 5.5 % (0.0-12.0); Neutrophils # (auto) 3.7 10 ^3/uL (1.6-8.6); Neutrophils % (auto) 59.2 % (37.0-80.0); Nucleated Red Blood Cells % 0.1 %; Platelet Count (auto) 125 10^3/uL (140-450); Red Blood Cells 4.39 10^6/uL (4.0-5.20); Red Cell Distribution Width 14.3 % (11.8-14.3); White Blood Cell 6.2 10^3/uL (4.4-10.8)
[2024-04-26] MEDS: hydrALAZINE HCL 20 MG/ML VL IV PRN (16:48)
[2024-04-26] MEDS ORDERED: ONDANSETRON HCL 4 MG/2 ML VIAL IV PRN (18:00)
[2024-04-26] MEDS ORDERED: HYDROcodone-ACET 5/325MG TAB PO PRN (18:00)
[2024-04-26] MEDS ORDERED: MORPHINE SULFATE INJ 2 MG/ml SYRG IV PRN (18:00)
[2024-04-26] MEDS ORDERED: diphenhdrAMINE HCL 25 MG CAP PO PRN (18:00)
[2024-04-26] MEDS ORDERED: NITROGLYCERIN 0.4 MG SL TAB SL PRN (18:00)
--- NOTE | 2024-04-26 18:39 | DVHINCON2 ---
Date Seen: Apr 26, [address] Jack Reason for Consultation Status post fall. Possible pacer displacement History of Present Illness Patient experienced a fall today at home and was brought in for what she describes as a pacer displacement. She was putting a book down and felt that she was going to slip. She then rapidly moved her right hand towards her chest. She felt the pacemaker may be possibly displaced from its original position. She feels slight pain in her chest locally. No dizziness lightheadedness syncope or other dysrhythmias or arrhythmia related problem. She denies any anginal pain or congestive heart failure symptoms. No shortness of breath. Past Medical History Her past medical history is significant for hypothyroidism sick sinus syndrome. Hyperlipidemia. Arthritis. Paroxysmal atrial fibrillation. COPD. Diabetes hypertension history of pulmonary embolism. Past Surgical History Her past surgical history significant for an appendectomy cholecystectomy hernia repair hysterectomy and pacemaker in the past. Family History: FH: Parkinson's disease G8 FATHER FH: cancer G8 MOTHER FH: rheumatoid arthritis G8 FATHER Family history: Hypertension G8 FATHER Allergies: Coded Allergies: Morphine and Codeine (Verified Allergy, Severe, 12/14/21) Latex (Verified Allergy, Unknown, 09/08/17) Rocuronium (Verified Allergy, Unknown, 09/08/17) Meperidine (Verified Adverse Reaction, Severe, BREATHING PROBLEMS, 03/08/23) Opium (Verified Adverse Reaction, Severe, 03/08/23) ALL OPIOD DERIVED MEDICATIONS Home Meds Active Scripts Prednisone (Prednisone) 20 Mg Tab, 20 MG PO DAILY for 4 Days, #4 CAP Prov:GERARD BENNETT DO 08/28/23 Meclizine Hcl (Meclizine Hcl) 12.5 Mg Tab, 25 MG PO TID PRN for 7 Days, #21 TAB Prov:MILLIE CORONA MD 08/04/23 Fluticasone Propionate (Nasal) (Flonase Allergy Relief) 50 Mcg/Act Spr, 50 MCG NA BID, #1 SPRAY Prov:INDU OJEDA MD 04/18/23 Ciprofloxacin Hcl (Cipro) 500 Mg Tab, 1 TAB PO BID, #14 TAB Prov:INDU OJEDA MD 04/18/23 Diltiazem HCl (Diltiazem Hydrochloride E) 180 Mg Cap, 180 MG PO DAILY, #90 CAP Prov:INDU OJEDA MD 03/25/23 Ibuprofen Micronized (MOTRIN TABLET) 600 Mg Tb, 600 MG PO Q6HP PRN, #20 TAB Prov:INDU OJEDA MD 03/09/23 Apixaban Base (ELIQUIS) 5 Mg Tab, 5 MG PO Q12HR, #60 TAB Prov:JAYLEEN HARP MD 12/15/21 Reported Medications Betamethasone Dipropionate (Betamethasone Dipropionat) 0.05 % Cre, TOP BIDPRN 04/17/23 Levothyroxine Sodium (Levothyroxine Sodium) 50 Mcg Tab, 1 TAB PO DAILY 03/24/23 Gabapentin (Gabapentin) 300 Mg Cap, 1 CAP PO BID 03/06/23 Diphenhydramine Hcl (Benadryl Allergy) 25 Mg Cap, 25 MG PO DAILY PRN for SHORTN ESS OF BREATH, CAP 09/11/17 Atorvastatin Calcium (Lipitor) 40 Mg Tab, 1 TAB PO QPM, #90 TAB 1 Refill 08/21/17 Fluticasone Furoate-Vilanterol (BREO ELLIPTA) 1 Inh Inh, 1 INH IN DAILY, INH 10/25/16 Current Medications Current Medications Medications (Trade) Dose Ordered Sig/Amanda Route PRN Reason Start Time Stop Time Status Last Admin Hydralazine HCl (Apresoline Injection) 10 mg Q4HP PRN IV SBP>160 04/26/24 16:00 04/26/24 16:48 Acetaminophen/ Hydrocodone Bitart ([place] 5/325MG Tab) 1 tab Q4HP PRN PO MODERATE PAIN (4-6 PAIN SCALE) 04/26/24 18:00 UNV Ondansetron HCl (Zofran) 4 mg Q4HP PRN IV NAUSEA / VOMITING 04/26/24 18:00 UNV Acetaminophen (Tylenol Tablet) 650 mg Q6HP PRN PO PAIN SCALE 1-3 OR TEMP>100.4 04/26/24 18:00 UNV Nitroglycerin (Ntrostat Sublingual) 0.4 mg Q5MINP PRN SL FOR CHEST PAIN 04/26/24 18:00 UNV Morphine Sulfate 2 mg Q30M PRN IV FOR CHEST PAIN 04/26/24 18:00 UNV Apixaban (Eliquis) 5 mg Q12HR PO 04/26/24 22:00 UNV Diltiazem HCl (Cardizem LA Capsule) 180 mg DAILY PO 04/27/24 10:00 UNV Diphenhydramine HCl (Benadryl Capsule) 25 mg DAILY PRN PO SHORTNESS OF BREATH 04/26/24 18:00 UNV Levothyroxine Sodium (Synthroid Tablet) 50 mcg DAILY PO 04/27/24 10:00 UNV Patient Own Medication 1 tab QPM PO 04/26/24 18:00 UNV Patient Own Medication 1 inh DAILY IN 04/27/24 10:00 UNV Review of Systems Review of systems from a constitutional standpoint negative. No fevers chills or weight loss. Cardiac and respiratory as noted above. GI neuromuscular hematologic oncologic and dermatologic negati Vital Signs Vital Signs Date Time Temp Pulse Resp B/P (MAP) Pulse Ox O2 Delivery O2 Flow Rate FiO2 04/26/24 18:02 74 04/26/24 16:48 171/77 04/26/24 12:00 23 96 04/26/24 08:00 98.7 98.7 04/26/24 07:44 Nasal Cannula* 2 28 Physical Exam Blood pressure is noted. HEENT examination is otherwise unremarkable orally well hydrated. Trachea central neck supple thyroid is nonpalpable there is no jugular distention no bruits. Lungs reveal good air entry no rales or rhonchi. Heart exam reveals regular S1-S2 soft S4. abdominal examination is otherwise unremarkable. Extremities reveal adequate perfusion without clubbing or cyano sis no edema. Neurologically intact. Integumentary is normal. Labs/Diagnostic Data Labs Test 04/26/24 07:38 04/26/24 06:38 Range/Units Troponin I High Sensitivity < 3 L </=34 ng/L White Blood Count 6.2 4.4-10.8 10^3/uL Red Blood Count 4.39 4.0-5.20 10^6/uL Hemoglobin 13.7 12.2-16.2 g/dL Hematocrit 42.0 36.0-46.0 % Mean Corpuscular Volume 95.7 80.0-100.0 fL Mean Corpuscular Hemoglobin 31.2 28.0-32.0 pg Mean Corpuscular Hemoglobin Concent 32.6 32.0-36.0 g/dL Red Cell Distribution Width 14.3 11.8-14.3 % Platelet Count 125 L 140-450 10^3/uL Mean Platelet Volume 10.3 6.9-10.8 fL Neutrophils (%) (Auto) 59.2 37.0-80.0 % Lymphocytes (%) (Auto) 30.7 10.0-50.0 % Monocytes (%) (Auto) 5.5 0.0-12.0 % Eosinophils (%) (Auto) 3.9 0.0-7.0 % Basophils (%) (Auto) 0.7 0.0-2.0 % Neutrophils # (Auto) 3.7 1.6-8.6 10 ^3/uL Lymphocytes # (Auto) 1.9 0.4-5.4 10 ^3/uL Monocytes # (Auto) 0.3 0-1.3 10 ^3/uL Eosinophils # (Auto) 0.2 0-0.8 10 ^3/uL Basophils # (Auto) 0 0-0.2 10 ^3/uL Nucleated Red Blood Cells 0.1 % Sodium Level 142 136-145 mmol/L Potassium Level 4.0 3.5-5.1 mmol/L Chloride Level 103 98-107 mmol/L Carbon Dioxide Level 31 20-31 mmol/L Anion Gap 8 5-15 Blood Urea Nitrogen 18 9-23 mg/dL Creatinine 1.02 0.550-1.02 mg/dL Glomerular Filtration Rate Calc 56 >90 mL/min BUN/Creatinine Ratio 17.6 10.0-20.0 Serum Glucose 112 H 74-106 mg/dL Calcium Level 9.8 8.7-10.4 mg/dL Total Bilirubin 0.5 0.2-1.0 mg/dL Aspartate Amino Transferase (AST) 13 13-40 U/L Alanine Aminotransferase (ALT) 18 7-40 U/L Alkaline Phosphatase 57 46-116 U/L B-Type Natriuretic Peptide 21.19 0-100 pg/mL Total Protein 7.7 5.7-8.2 g/dL Albumin 4.5 3.2-4.8 g/dL Pending EKG. Labs are for the most part unremarkable. Chest x-ray shows no significant lead displacement. Assessment Hypertension. Increased BMI. Status post fall. Doubt displacement of pacemaker. Sick sinus syndrome. Paroxysmal atrial fibrillation. Asthma, COPD, Plan/Recommendation We will monitor overnight. Pacer check in the morning. If there is no lead displacement with normal thresholds suggest continuation of medical therapy. No further testing is required at this time Plan discussed with: Patient NYHA Physical activity limitations: Class1(None)absent sob, Date of Service: Apr 26, 2024 Billing Provider: HAMILTON ANN Sr., MD Cardiology Common Codes: [id number] INP/OBS CARE (High) HAMILTON ANN Sr., MD Apr 26, 2024 18:39
[2024-04-26] MEDS: ATORVASTATIN 20 MG TAB PO SCH (18:59)
[2024-04-26 19:20] VITALS: PULSE 71; RESP 21; O2SAT 95
[2024-04-26] MEDS: APIXABAN 5 MG TAB PO SCH (22:29)
[2024-04-27] VITALS (7 sets, daily range): BP systolic 121–145; BP diastolic 58–71; PULSE 66–78; RESP 16–18; TEMP 98.3–98.6; O2SAT 91–98
--- NOTE | 2024-04-27 01:20 | DVHHP2 ---
Admitting Diagnosis: Pacemaker displacement, s/p mechanical fall History of Present Illness History Source: Patient Exam Limitations: No limitations HPI Mrs. Kori Mcadams is a 78 yo female with a history of a fib, asthma, COPD, DM, hypertension, thyroid disease, PE, who presents with a chief complaint of status post mechanical slip, patient reports she was reaching to put something away while holding onto her walker, the top of her walker moved and she slipped, and was able to catch herself from fully falling but landed with her chest against her walker. Patient has pacemaker in place, comes to ER to "check her pacemaker" D/T pt believes it may have moved. Patient denies chest pain, difficulty breathing, shortness of breath, dizziness, nausea or vomiting. Patient admitted for further evaluation. Home Meds Active Scripts Prednisone (Prednisone) 20 Mg Tab, 20 MG PO DAILY for 4 Days, #4 CAP Prov:GERARD BENNETT DO 08/28/23 Meclizine Hcl (Meclizine Hcl) 12.5 Mg Tab, 25 MG PO TID PRN for 7 Days, #21 TAB Prov:MILLIE CORONA MD 08/04/23 Fluticasone Propionate (Nasal) (Flonase Allergy Relief) 50 Mcg/Act Spr, 50 MCG NA BID, #1 SPRAY Prov:INDU OJEDA MD 04/18/23 Ciprofloxacin Hcl (Cipro) 500 Mg Tab, 1 TAB PO BID, #14 TAB Prov:INDU OJEDA MD 04/18/23 Diltiazem HCl (Diltiazem Hydrochloride E) 180 Mg Cap, 180 MG PO DAILY, #90 CAP Prov:INDU OJEDA MD 03/25/23 Ibuprofen Micronized (MOTRIN TABLET) 600 Mg Tb, 600 MG PO Q6HP PRN, #20 TAB Prov:INDU OJEDA MD 03/09/23 Apixaban Base (ELIQUIS) 5 Mg Tab, 5 MG PO Q12HR, #60 TAB Prov:JAYLEEN HARP MD 12/15/21 Reported Medications Betamethasone Dipropionate (Betamethasone Dipropionat) 0.05 % Cre, TOP BIDPRN 04/17/23 Levothyroxine Sodium (Levothyroxine Sodium) 50 Mcg Tab, 1 TAB PO DAILY 03/24/23 Gabapentin (Gabapentin) 300 Mg Cap, 1 CAP PO BID 03/06/23 Diphenhydramine Hcl (Benadryl Allergy) 25 Mg Cap, 25 MG PO DAILY PRN for SHORTNESS OF BREATH, CAP 09/11/17 Atorvastatin Calcium (Lipitor) 40 Mg Tab, 1 TAB PO QPM, #90 TAB 1 Refill 08/21/17 Fluticasone Furoate-Vilanterol (BREO ELLIPTA) 1 Inh Inh, 1 INH IN DAILY, INH 10/25/16 Past Medical History Cardiac: AFIB, HTN Pulmonary: Asthma, COPD Central Nervous System: No pertinent Hx GI: No pertinent Hx Hemotology/Oncology: No pertinent Hx Hepatobiliary: No pertinent Hx Psychiatric: No pertinent Hx Musculoskeletal: No pertinent Hx Rheumotologic: No pertinent Hx Infectious Disease: No peritnent Hx ENT: No pertinent Hx Renal/: No pertinent Hx Endocrine: Hypothyroidism, NIDDM Dermatology: No pertinent Hx Patient Family History: FH: Parkinson's disease G8 FATHER FH: cancer G8 MOTHER FH: rheumatoid arthritis G8 FATHER Family history: Hypertension G8 FATHER Smoker: No Hx (Negative) Alocohol: None Lives with: Alone Domestic Violence: Neg Review of Systems Constitutional: No symptom reported Ears, Nose, & Throat: No symptom reported Eyes: No symptom reported Pulmonary/Respiratory: No symptom reported Cardiovascular: No symptom reported Gastrointestinal: No symptom reported Genitourinary: No symptom reported Musculoskeletal: No symptom reported Skin: No symptom reported Psychiatric: No symptom reported Endocrine: No symptom reported Hemotologic/Lymphatic: No symptom reported H&P Exam Vital Signs Vital Signs Date Time Temp Pulse Resp B/P (MAP) Pulse Ox O2 Delivery O2 Flow Rate FiO2 04/27/24 00:00 67 15 152/64 (93) 95 04/26/24 19:20 98.3 98.3 04/26/24 19:20 Nasal Cannula* 2 28 General Appeara: Well developed, Well nourished, Normal Appearance Head Exam: Normal inspection Neck Exam: Normal inspection, Non-tender, Normal alignment Eye Exam: bilateral eye Normal inspection, bilateral eye PERRL, bilateral eye EOMI Ear Exam: bilateral ear Auricle normal Nasal Exam: Normal inspection Mouth: Normal Inspection Pulmonary/Respiratory: Normal inspection, Normal breath sounds, Chest non- tender, Lungs clear Cardiovascular/Chest: Normal inspection, Regular rate, Normal Rhythm Peripheral Pulses: 2+ dorsalis pedis (R), 2+ dorsalis pedis (L), 2+ Radial (R), 2+ Radial (L) Abdominal Exam: Normal bowel sounds, Soft, No tenderness Rectal Exam: Deferred Back Exam: Normal inspection [employer] Exam: Normal hearing, Normal speech, PERRL Neuro/Mental St: Alert, Oriented Appearance: Appropriate appearance, Appropriate insight Eye contact/ Speech: Cooperative, Good eye contact, Normal speech Thoughts/Psych: Normal thought pattern Skin Exam: Normal inspection, Normal color, Warm/dry Labs/Xrays Labs Test 04/26/24 07:38 04/26/24 06:38 Range/Units Troponin I High Sensitivity < 3 L </=34 ng/L White Blood Count 6.2 4.4-10.8 10^3/uL Red Blood Count 4.39 4.0-5.20 10^6/uL Hemoglobin 13.7 12.2-16.2 g/dL Hematocrit 42.0 36.0-46.0 % Mean Corpuscular Volume 95.7 80.0-100.0 fL Mean Corpuscular Hemoglobin 31.2 28.0-32.0 pg Mean Corpuscular Hemoglobin Concent 32.6 32.0-36.0 g/dL Red Cell Distribution Width 14.3 11.8-14.3 % Platelet Count 125 L 140-450 10^3/uL Mean Platelet Volume 10.3 6.9-10.8 fL Neutrophils (%) (Auto) 59.2 37.0-80.0 % Lymphocytes (%) (Auto) 30.7 10.0-50.0 % Monocytes (%) (Auto) 5.5 0.0-12.0 % Eosinophils (%) (Auto) 3.9 0.0-7.0 % Basophils (%) (Auto) 0.7 0.0-2.0 % Neutrophils # (Auto) 3.7 1.6-8.6 10 ^3/uL Lymphocytes # (Auto) 1.9 0.4-5.4 10 ^3/uL Monocytes # (Auto) 0.3 0-1.3 10 ^3/uL Eosinophils # (Auto) 0.2 0-0.8 10 ^3/uL Basophils # (Auto) 0 0-0.2 10 ^3/uL Nucleated Red Blood Cells 0.1 % Sodium Level 142 136-145 mmol/L Potassium Level 4.0 3.5-5.1 mmol/L Chloride Level 103 98-107 mmol/L Carbon Dioxide Level 31 20-31 mmol/L Anion Gap 8 5-15 Blood Urea Nitrogen 18 9-23 mg/dL Creatinine 1.02 0.550-1.02 mg/dL Glomerular Filtration Rate Calc 56 >90 mL/min BUN/Creatinine Ratio 17.6 10.0-20.0 Serum Glucose 112 H 74-106 mg/dL Calcium Level 9.8 8.7-10.4 mg/dL Total Bilirubin 0.5 0.2-1.0 mg/dL Aspartate Amino Transferase (AST) 13 13-40 U/L Alanine Aminotransferase (ALT) 18 7-40 U/L Alkaline Phosphatase 57 46-116 U/L B-Type Natriuretic Peptide 21.19 0-100 pg/mL Total Protein 7.7 5.7-8.2 g/dL Albumin 4.5 3.2-4.8 g/dL Assessment/Plan Problem List: (1) Pacemaker displacement (2) Accident due to mechanical fall without injury Plan This is a 78 yo female with a known history of a fib, hypertension, asthma, COPD, thyroid disease, PE, arthritis who presents to the hospital status post mechanical slip landed on left chest on her walker and reports pacemaker displacement. 1. Pacemaker displacement 2. status post near fall Plan Admit telemetry unit Cardiology consultation, 2D echocardiogram Interrogation of pacemaker Reconcile home medication and continue as needed Fall precautions Discussed all above with patient who verbalized agreement and understanding of care plan. All questions were answered. Discussed assessment and care plan with supervising/admitting MD. Plan discussed with: Patient, Other Code Visit Code Visit Total Time (mins): 45 Additional Comments Additional Comments Additional Comments 78-year-old female with a known history of chronic AFib, asthma, COPD, diabetes mellitus type 2, chronic respiratory failure on home O2, sick sinus syndrome status post AICD in his has been with a heart rate facility with status post mechanical slip, patient was thought her pacemaker might be displaced. Patient was eventually recommended to be admitted. 1. Sick sinus syndrome status post pacemaker placement, concern for pacemaker displacement 2. Chronic respiratory failure on home O2 3. Chronic AFib 4. COPD 5. Diabetes mellitus type 2 6. Hypertension 7. Hypothyroidism -tele admit for close monitoring, pacemaker interrogation, cardiology consultation. JACOB ROMO Apr 27, 2024 01:20 JOESPH HAYNES MD Apr 27, 2024 16:49
[2024-04-27] MEDS: diphenhdrAMINE HCL 25 MG CAP PO ONE (01:50)
--- NOTE | 2024-04-27 03:43 | ECG ---
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
[2024-04-27] MEDS: ACETAMINOPHEN 325 MG TAB PO PRN (05:37)
[2024-04-27] MEDS: LEVOTHYROXINE SODIUM 50 MCG TAB PO SCH (07:03)
[2024-04-27] MEDS: FLUTICASONE FUROATE VILANTEROL IN SCH (10:00)
[2024-04-27] MEDS: dilTIAZem HCL 180MG ER CAP PO SCH (10:42)
--- NOTE | 2024-04-27 16:51 | DVHDS2 ---
Discharge Summary Date of Admission Apr 26, 2024 at 17:47 Date of Discharge: Apr 27, 2024 Labs/Diagnostic Data: Laboratory Results Test 04/26/24 07:38 04/26/24 06:38 Troponin I High Sensitivity < 3 ng/L (</=34) White Blood Count 6.2 10^3/uL (4.4-10.8) Red Blood Count 4.39 10^6/uL (4.0-5.20) Hemoglobin 13.7 g/dL (12.2-16.2) Hematocrit 42.0 % (36.0-46.0) Mean Corpuscular Volume 95.7 fL (80.0-100.0) Mean Corpuscular Hemoglobin 31.2 pg (28.0-32.0) Mean Corpuscular Hemoglobin Concent 32.6 g/dL (32.0-36.0) Red Cell Distribution Width 14.3 % (11.8-14.3) Platelet Count 125 10^3/uL (140-450) Mean Platelet Volume 10.3 fL (6.9-10.8) Neutrophils (%) (Auto) 59.2 % (37.0-80.0) Lymphocytes (%) (Auto) 30.7 % (10.0-50.0) Monocytes (%) (Auto) 5.5 % (0.0-12.0) Eosinophils (%) (Auto) 3.9 % (0.0-7.0) Basophils (%) (Auto) 0.7 % (0.0-2.0) Neutrophils # (Auto) 3.7 10 ^3/uL (1.6-8.6) Lymphocytes # (Auto) 1.9 10 ^3/uL (0.4-5.4) Monocytes # (Auto) 0.3 10 ^3/uL (0-1.3) Eosinophils # (Auto) 0.2 10 ^3/uL (0-0.8) Basophils # (Auto) 0 10 ^3/uL (0-0.2) Nucleated Red Blood Cells 0.1 % Sodium Level 142 mmol/L (136-145) Potassium Level 4.0 mmol/L (3.5-5.1) Chloride Level 103 mmol/L (98-107) Carbon Dioxide Level 31 mmol/L (20-31) Anion Gap 8 (5-15) Blood Urea Nitrogen 18 mg/dL (9-23) Creatinine 1.02 mg/dL (0.550-1.02) Glomerular Filtration Rate Calc 56 mL/min (>90) BUN/Creatinine Ratio 17.6 (10.0-20.0) Serum Glucose 112 mg/dL (74-106) Calcium Level 9.8 mg/dL (8.7-10.4) Total Bilirubin 0.5 mg/dL (0.2-1.0) Aspartate Amino Transferase (AST) 13 U/L (13-40) Alanine Aminotransferase (ALT) 18 U/L (7-40) Alkaline Phosphatase 57 U/L (46-116) B-Type Natriuretic Peptide 21.19 pg/mL (0-100) Total Protein 7.7 g/dL (5.7-8.2) Albumin 4.5 g/dL (3.2-4.8) Other Laboratory Tests 04/26/24 06:38 Brief Hx & Hospital Course: 78-year-old female with a known history of chronic AFib, asthma, COPD, diabetes mellitus type 2, chronic respiratory failure on home O2, sick sinus syndrome status post AICD in his has been with a heart rate facility with status post mechanical slip, patient was thought her pacemaker might be displaced. Patient was eventually recommended to be admitted. Patient's has a history of sick sinus syndrome status post pacemaker placement in the past. Patient was seen by Cardiology. Pacemaker interrogation was done which was working fine. Cardiology cleared the patient to be discharged. Patient is being discharged under stable condition. Condition at Discharge: Stable Final Diagnosis/Problems List 78-year-old female with a known history of chronic AFib, asthma, COPD, diabetes mellitus type 2, chronic respiratory failure on home O2, sick sinus syndrome status post AICD [facility] facility with status post mechanical slip, patient thought her pacemaker might be displaced. Patient was eventually recommended to be admitted. 1. Sick sinus syndrome status post pacemaker placement, concern for pacemaker displacement 2. Chronic respiratory failure on home O2 3. Chronic AFib 4. COPD 5. Diabetes mellitus type 2 6. Hypertension 7. Hypothyroidism Discharge Disposition: Home SNF Discharge Will this Physician continue t: No Discharge Instruct/Medications Diet: Cardiac 2g Na,low cholest Diet comment: 1999. ADA diet Activity: No Restrictions, As Tolerated Follow Up/Referral: Follow up with the PCP in one week Follow up with Cardiology in 1-2 weeks Medications: Resume home meds Discharge Statement: "Patient was advised to return to the ER or call 911 if any headaches, dizziness, shortness of breath, chest pain, abdominal pain, bleeding, fevers, or worsening of medical condition. Patient was counseled about treatment plan, medications, possible side effects, patientverbalized understanding. All questions were answered to the best of my ability. This discharge took greater then 30 minutes in planning, reviewing documentation, counseling the patient, and discussing with other team members." ASSESSMENT ASSESSMENT Assessment 78-year-old female with a known history of chronic AFib, asthma, COPD, diabetes mellitus type 2, chronic respiratory failure on home O2, sick sinus syndrome status post [facility] facility with status post mechanical slip, patient thought her pacemaker might be displaced. Patient was eventually recommended to be admitted. 1. Sick sinus syndrome status post pacemaker placement, concern for pacemaker displacement 2. Chronic respiratory failure on home O2 3. Chronic AFib 4. COPD 5. Diabetes mellitus type 2 6. Hypertension 7. Hypothyroidism Date of Service: Apr 27, 2024 Billing Provider: JOESPH HAYNES MD Common Visit Codes: NOT BILLABLE JOESPH HAYNES MD Apr 27, 2024 16:51
--- NOTE | 2024-04-28 11:53 | DVHSR ---
APPROVED REPORT EXAM: Two-dimensional and M-mode echocardiogram with Doppler and color Doppler. Blood Pressure: 128/91 mmHg INDICATION Pacemaker displaced? Surgery/Intervention Pacemaker: RISK FACTORS Obesity: Height: 5'9", Weight: 220 DIMENSIONS LVDd5.1 (3.8-5.7cm)LA (2D)4.0 (1.9-4.0cm)Aortic Root3.1 (2.0-3.7cm) LVDs3.4 (2.5-4.0cm)LA (MM) (1.9-4.0cm)Aortic Cusp Exc1.8 (1.5-2.0cm) EF (%) 55.0 (55-70%)Rt. Atrium4.1 (1.9-4.0cm)Asc. Aorta cm IVSd1.1 (0.7-1.1cm)RV (D)3.8 (1.8-2.4cm) PWd1.1 (0.7-1.1cm) Mitral Valve MitralMitral Stenosis E wave0.83m/sMV Mean GR.mmHg A wave0.94m/sMV Peak GR.mmHg E/A ratio0.92D MVAcm2 DECEL [id number] 1/2 Timems Aortic Valve Aortic ValveAortic Stenosis V11.06m/Rebekah Mean GR.6mmHg V21.67m/Rebekah Peak GR.11mmHg LVOT Diameter2.0 (1.8-2.4cm)Doppler AVA1.99cm2 Pulmonic Valve V21.34m/s Tricuspid Valve TR Velocity2.84m/s [id number] Conclusion lvef 65% pacing lead in RA normal rv function left atrium enlarged mild
== END 2024-04-27 20:18 | disposition home or self-care (01) | DRG 315 ==
LOC: EDBD 04:42 → ER 04:42 → OVERFLOW 17:47 → TELE-WESTW 04-27 15:39
PROVIDERS: ADMIT Internal Medicine; ATTEND Internal Medicine
DX: T82.128A Displacement of other cardiac electronic device, initial encounter (principal); I48.20 Chronic atrial fibrillation, unspecified; J96.10 Chronic respiratory failure, unspecified whether with hypoxia or hypercapnia; I49.5 Sick sinus syndrome; I48.0 Paroxysmal atrial fibrillation; E11.9 Type 2 diabetes mellitus without complications; I10 Essential (primary) hypertension; J44.89 Other specified chronic obstructive pulmonary disease; E03.9 Hypothyroidism, unspecified; E78.5 Hyperlipidemia, unspecified; Z88.8 Allergy status to other drugs, medicaments and biological substances; Z90.49 Acquired absence of other specified parts of digestive tract; Z90.710 Acquired absence of both cervix and uterus; Z87.891 Personal history of nicotine dependence; Z79.84 Long term (current) use of oral hypoglycemic drugs; Z86.711 Personal history of pulmonary embolism; Z88.6 Allergy status to analgesic agent; Z82.49 Family history of ischemic heart disease and other diseases of the circulatory system; Z95.810 Presence of automatic (implantable) cardiac defibrillator; Z82.61 Family history of arthritis; Z79.899 Other long term (current) drug therapy; Z82.0 Family history of epilepsy and other diseases of the nervous system; Z99.81 Dependence on supplemental oxygen; Y84.8 Other medical procedures as the cause of abnormal reaction of the patient, or of later complication, without mention of misadventure at the time of the procedure; W01.0XXA Fall on same level from slipping, tripping and stumbling without subsequent striking against object, initial encounter; Y92.89 Other specified places as the place of occurrence of the external cause; Y93.89 Activity, other specified; Y99.8 Other external cause status; Z91.040 Latex allergy status
CPT/HCPCS: 36415; 71046; 80053; 83880; 84484; 85025; 93005; 93306; 96374; G0378